=== PATIENT | male | born 1960 | race Caucasian/White ===

== ENCOUNTER 2018-05-12 20:30 | Outpatient (CLI) | payer OTHER | END 2018-05-12 20:31 | disposition home or self-care (01) | LOC: SLEEPLAB 20:30 | PROVIDERS: ATTEND Specialist | DX: G47.33 Obstructive sleep apnea (adult) (pediatric) (principal); R53.83 Other fatigue; R40.0 Somnolence; R06.83 Snoring; G47.00 Insomnia, unspecified | CPT/HCPCS: 95811 ==

== ENCOUNTER 2018-06-15 11:57 | Outpatient (CLI) | payer OTHER ==
--- NOTE | 2018-06-15 12:57 | RAD ---
CERVICAL SPINE RADIOGRAPH SERIES 3 VIEWS: INDICATION: Pain. History of cervical spine surgery. FINDINGS: Three lateral views are submitted for interpretation. Comparing extension and flexion views with neutral lateral view, there is no significant, abnormal tr anslational motion or subluxation present. There is reversal of normal cervical curvature. ACDF is present at C3-4 with an intervening disk prosthesis. Moderate multilevel degenerative change with mu ltilevel end plate irregularity, marginal osteophyte formation, disk space narrowing, and facet osteo arthritis present. Evaluation is otherwise limited on the basis of lateral views. IMPRESSION: No significant listhesis or translational motion demonstrated. POS: [facility]
== END 2018-06-15 11:58 | disposition home or self-care (01) ==
LOC: RAD 11:57
PROVIDERS: ATTEND Nurse Practitioner Family
DX: M54.12 Radiculopathy, cervical region (principal)
CPT/HCPCS: 72040

== ENCOUNTER 2018-07-27 11:03 | Emergency (ER) | payer OTHER | END 2018-07-27 11:20 | disposition home or self-care (01) | LOC: SCSER 11:03 | DX: L25.9 Unspecified contact dermatitis, unspecified cause (principal); I10 Essential (primary) hypertension; F17.210 Nicotine dependence, cigarettes, uncomplicated | CPT/HCPCS: 99282 ==

== ENCOUNTER 2018-07-29 12:38 | Outpatient (CLI) | payer OTHER ==
[2018-07-29 14:35] LABS: #Basophils 0.1 thou/uL (0.0-0.2); #Eosinphils 0.5 thou/uL (0.0-0.7); #Lymphocytes 2.1 thou/uL (1.20-3.40); #Monocytes 0.8 thou/uL (0.11-0.59); #Neutrophils 4.8 thou/uL (1.40-6.50); %Basophils 0.9 % (0.0-1.0); %Eosinophils 6.4 % (0.0-10.0); %Monocytes 9.7 % (0.0-10.0); %Neutrophils 58.1 % (42.0-75.0); Mean Corpuscular Hemoglobin 31.1 pg (27.0-31.0); Mean Corpuscular Volume 91.4 fL (78.0-98.0); Mean Platelet Volume 7.5 fL (7.4-10.4); Platelet Count 194 thou/uL (130-400); RBC Distribution Width 11.6 % (11.5-14.5); Red Blood Cell (RBC) Count 4.19 mill/uL (4.70-6.10); White Blood Cell (WBC) Count 8.3 thou/uL (4.8-10.8)
[2018-07-29 15:05] LABS: ALT (SGPT) 34 U/L (8-55); AST (SGOT) 34 U/L (5-34); Albumin 4.3 g/dL (3.5-5.0); Alkaline Phosphatase 71 U/L (40-150); Anion Gap 12 mmol/L (10-20); BUN (Urea Nitrogen) 27 mg/dL (8.4-25.7); Bilirubin, Total 0.6 mg/dL (0.2-1.2); Calc. Creatinine Clearance 0 mL/min (70-130); Carbon Dioxide 27 mmol/L (22-29); Chloride 102 mmol/L (98-107); Estimated GFR-MDRD 63; Globulin 2.9 g/dL (2.4-3.5); Glucose 89 mg/dL (70-105); Potassium 4.3 mmol/L (3.5-5.1); Protein, Total 7.2 g/dL (6.0-8.3); Sodium 137 mmol/L (136-145)
== END 2018-07-29 12:39 | disposition home or self-care (01) ==
LOC: LABBT 12:38
PROVIDERS: ATTEND Internal Medicine
DX: Z01.812 Encounter for preprocedural laboratory examination (principal); R07.9 Chest pain, unspecified
CPT/HCPCS: 80053; 85025

== ENCOUNTER 2018-08-01 06:06 | Inpatient (IN) | payer OTHER ==
[2018-08-01] MEDS ORDERED: Diazepam 5 MG TAB ONE (06:34)
[2018-08-01] MEDS ORDERED: Acetaminophen/Codeine 30-300mg Tablet PO PRN ×4 (07:33→09:41)
[2018-08-01] MEDS ORDERED: Sodium Chloride 0.9% 200 ML IV PRN (07:33)
[2018-08-01] MEDS ORDERED: Nitroglycerin 0.4 MG TAB (25 Tab Bottle) SL PRN ×2 (07:33→09:41)
[2018-08-01] MEDS ORDERED: Sodium Chloride 0.9% 1,000 ML IV SCH (07:45)
[2018-08-01] MEDS ORDERED: Iopamidol 370 76% 100 ML VIAL ONE (10:54)
[2018-08-01] MEDS ORDERED: [UNRECOGNIZED DRUG - REMARK] FS SCH (12:38)
--- NOTE | 2018-08-01 16:21 | CON ---
DATE OF CONSULTATION: HISTORY OF PRESENT ILLNESS: This is a 58-year-old gentleman, who is a poor historian, but admits to probably two episodes of central chest discomfort over the past month. It is associated with dyspnea. He was seen by Dr. Garcia, where the patient states he underwent carotid ultrasonography and peripheral vascular evaluation and EKG. He underwent cardiac catheterization today, where he was found to have left main and ostial right coronary artery stenosis and has been referred for coronary bypass grafting. PAST MEDICAL HISTORY: Significant for hypertension, hypothyroidism, peripheral vascular disease, chronic tobacco abuse. He continues to smoke a couple of cigarettes a day and earlier this year was smoking about half a pack of cigarettes a day. PAST SURGICAL HISTORY: Includes left knee replacement in 2003, right carotid endarterectomy in 2013, bilateral femoral endarterectomy and kissing common iliac stents in 2013, and left knee replacement in 2014. SOCIAL HISTORY: Smoker as mentioned. Drinks socially. Lives with his aunt. No specific exercise program. ALLERGIES: NONE KNOWN. MEDICATIONS: Medications reported most recently are: 1. Hydrochlorothiazide 25 mg a day. 2. Levothyroxine 125 a day. 3. Simvastatin 20 a day. 4. Aspirin 81 daily. 5. Plavix 75 a day. 6. Flomax 0.4 a day. It is not clear to me that the patient has been taking these regularly. PHYSICAL EXAMINATION: VITAL SIGNS: On examination, he has a recorded height of 5 feet 10 inches, weight of 209 pounds. NECK: He has a healed right carotid endarterectomy scar. CARDIAC: Regular rate and rhythm. No murmurs. ABDOMEN: Soft, nontender. LUNGS: Bilateral rhonchi, but no wheezes. EXTREMITIES: He has incisions in both groins with a dressing on the left groin. He has a weak but present right femoral pulse and palpable left dorsalis pedis pulse. He has no pedal pulses on the right foot. Both feet are warm to palpation. PLAN: Plan at this time is for coronary bypass grafting to the LAD, obtuse marginal, possible ramus, possible distal right coronary artery. Informed consent has been obtained. Additional problems include claudication in both calf with walking and a diminished right femoral pulse. Left femoral pulse could not be assessed at this time due to dressing and recent catheterization today. We will need this sorted out post coronary bypass grafting in case he has an iliac stent that has impending closure issues. He does have known left carotid disease, although the most recent carotid ultrasonography done by Dr. Garcia showed peak systolic velocities of 154 cm/second. Remote CTA in 2013 was suggestive of 70% left carotid stenosis, although this was not specifically treated because it did not coincide with carotid ultrasound findings that did not suggest that critical of the lesion. Informed consent has been obtained for coronary bypass grafting. Job ID: [id number]
--- NOTE | 2018-08-02 06:16 | PDOC.CTH ---
Cardiology Progress Note - Objective Vital Signs Temp Pulse Resp BP Pulse Ox 08/02/18 03:27 98.1 F 57 L 16 175/81 H 91 L 08/02/18 00:18 97.7 F 60 16 160/77 H 93 L 08/01/18 19:14 98.6 F 63 16 186/88 H 96 Weight 209 lb 6.4 oz 07/31/18 08/01/18 08/02/18 06:59 06:59 06:59 Intake Total 1678 Output Total 1460 Balance 218 - Assessment/Plan Severe CAD Severe PVD Carotid disease PRevious tobacco abuse Pt scheduled for CABG today Add statin and BB when extubated and hemodynamically stable
[2018-08-02] MEDS ORDERED: Bupivacaine HCl 0.5%/Epinephrine 1:200,000/PF 30 ml Vial ONE (06:29)
[2018-08-02] MEDS ORDERED: Dexamethasone 4 mg/ml Vial ONE (06:29)
[2018-08-02] MEDS ORDERED: Vecuronium 10 MG VIAL ONE ×2 (06:45→13:22)
[2018-08-02] MEDS ORDERED: Dexmedetomidine 200 MCG/2 ML VIAL ONE (06:45)
[2018-08-02] MEDS ORDERED: Norepinephrine 8 MG/0.9% NS 250 ML ONE (06:45)
[2018-08-02] MEDS ORDERED: Midazolam HCl 5 mg/5 ml Vial ONE (06:45)
[2018-08-02] MEDS ORDERED: Fentanyl 250 MCG/5 ML VIAL ONE (06:45)
[2018-08-02] MEDS ORDERED: Heparin 10,000 UNITS/1 ML VIAL 30,000 UNITS in Sodium Chloride 0.9% 1,000 ML FS SCH (07:00)
[2018-08-02] MEDS ORDERED: Midazolam HCl 2 mg/2 ml Vial ONE (07:04)
[2018-08-02] MEDS ORDERED: Albumin 5% 500 ML ONE (08:52)
[2018-08-02] MEDS ORDERED: Insulin Regular 300 UNITS/3 ML VIAL ONE (10:15)
[2018-08-02] MEDS ORDERED: Protamine Sulfate 50 MG/5 ML VIAL ONE (10:18)
[2018-08-02] MEDS ORDERED: Bisacodyl 5 MG TAB PO PRN (11:38)
[2018-08-02] MEDS ORDERED: Acetaminophen 325 MG TAB PO PRN (11:38)
[2018-08-02] MEDS ORDERED: DOPamine 400 MG/D5W 250 ML 250 ML IVPB PRN (11:38)
[2018-08-02] MEDS ORDERED: Ondansetron PF 4 MG/2 ML Vial IVP PRN (11:38)
[2018-08-02] MEDS ORDERED: Bisacodyl 10 MG SUPP PR PRN (11:38)
[2018-08-02] MEDS ORDERED: Mag-Al 1200 mg/1200 mg/30 ML UDCUP PO PRN (11:38)
[2018-08-02] MEDS ORDERED: Guaifenesin DM 100-10/5 ML UDCUP PO PRN (11:38)
[2018-08-02] MEDS ORDERED: Nitroglycerin 50 MG/250 ML BOT 250 ML IVPB PRN (11:38)
[2018-08-02] MEDS ORDERED: Hetastarch 6% 500 ML 500 ML IVPB PRN (11:38)
[2018-08-02] MEDS ORDERED: Promethazine HCl 25 MG/ML VIAL IM PRN (11:38)
[2018-08-02] MEDS ORDERED: Norepinephrine 8 MG/0.9% NS 250 ML IVPB PRN (11:38)
[2018-08-02] MEDS ORDERED: Fentanyl 100 MCG/2 ML VIAL SLOW IVP PRN ×2 (11:38)
[2018-08-02] MEDS ORDERED: HYDROcodone/Acetaminophen 5/325 mg Tablet PO PRN (11:38)
[2018-08-02] MEDS ORDERED: hydrALAZINE 20 MG/ML VIAL SLOW IVP PRN (11:38)
[2018-08-02] MEDS ORDERED: Morphine 2 MG/ML SYRINGE SLOW IVP PRN (11:38)
[2018-08-02] MEDS ORDERED: Post-Op Insulin Drip Protocol IVPB ONE (11:38)
[2018-08-02] MEDS ORDERED: Insulin Regular 300 UNITS/3 ML VIAL SC PRN (11:43)
[2018-08-02] MEDS ORDERED: Dextrose 5% in Water 1,000 ML IV PRN (11:43)
[2018-08-02] MEDS ORDERED: HUMULIN R 100 UNITS in Sodium Chloride 0.9% 100 ML IVPB SCH (11:43)
[2018-08-02] MEDS ORDERED: Dextrose 50% Abboject 50 ML SYRINGE SLOW IVP PRN (11:43)
[2018-08-02] MEDS ORDERED: Magnesium 2 GM/50 ML 2 GM in Premix Bag 1 BAG IVPB SCH (12:00)
[2018-08-02 12:06] LABS: Actual Bicarbonate (HCO3a) 23.6 mEq/L (22-28); Base Excess (BEa) -1.8 mEq/L (-2.0 to +3.0); Calcium, Ionized 1.12 mmol/L (1.12-1.30); Carboxyhemoglobin (COHb) 0.4 gm% (0.0-3.0); Hemoglobin (Hb) 9.9 g/dL (14.0-18.0); Potassium - ABG Lab 3.95 mmol/L (3.70-5.30); pH, Arterial 7.36 (7.35-7.45)
[2018-08-02 12:08] LABS: Puncture Site ALINE
[2018-08-02 12:13] LABS: #Eosinphils 0.3 thou/uL (0.0-0.7); #Lymphocytes 1.1 thou/uL (1.20-3.40); #Monocytes 0.9 thou/uL (0.11-0.59); #Neutrophils 9.3 thou/uL (1.40-6.50); %Basophils 0.2 % (0.0-1.0); %Eosinophils 2.4 % (0.0-10.0); %Lymphocytes 9.1 % (21.0-51.0); %Monocytes 7.4 % (0.0-10.0); %Neutrophils 80.9 % (42.0-75.0); Hemoglobin 9.3 g/dL (14.0-18.0); Mean Corpuscular HGB CONC 33.4 g/dL (32.0-36.0); Mean Corpuscular Hemoglobin 31.1 pg (27.0-31.0); Mean Corpuscular Volume 93.1 fL (78.0-98.0); Mean Platelet Volume 6.8 fL (7.4-10.4); Platelet Count 158 thou/uL (130-400); RBC Distribution Width 11.5 % (11.5-14.5); Red Blood Cell (RBC) Count 2.99 mill/uL (4.70-6.10); White Blood Cell (WBC) Count 11.5 thou/uL (4.8-10.8)
[2018-08-02 12:19] LABS: INR-International Normal Ratio 1.4; PTT 28.1 SEC (22.9-36.1); Prothrombin Time 16.8 SEC (12.0-14.7)
[2018-08-02 12:38] LABS: Anion Gap 6 mmol/L (10-20); BUN (Urea Nitrogen) 20 mg/dL (8.4-25.7); Calc. Creatinine Clearance 134 mL/min (70-130); Calcium 7.9 mg/dL (7.8-10.44); Carbon Dioxide 26 mmol/L (22-29); Chloride 111 mmol/L (98-107); Estimated GFR-MDRD Greater than 90; Glucose 75 mg/dL (70-105); Sodium 139 mmol/L (136-145)
[2018-08-02] MEDS ORDERED: Potassium Chloride 60 MEQ/30 ML VIAL ONE (13:22)
[2018-08-02] MEDS ORDERED: Lidocaine 2% PF 100 mg/5 ml Syringe ONE (13:22)
[2018-08-02] MEDS ORDERED: Papaverine 60 MG/2 ML VIAL ONE (13:22)
[2018-08-02] MEDS ORDERED: Sodium Bicarb 50 MEQ/50 ML VIAL ONE (13:22)
[2018-08-02] MEDS ORDERED: Heparin 30,000 units/30 ml VIAL ONE (13:22)
[2018-08-02] MEDS ORDERED: Calcium Chloride 1 GM/10 ML Abboject SYRINGE ONE (13:22)
[2018-08-02] MEDS ORDERED: Thrombin 5000 UNITS/5 ML VIAL ONE (13:22)
[2018-08-02] MEDS ORDERED: Magnesium 5 GM/10 ML VIAL ONE (13:22)
[2018-08-02] MEDS ORDERED: Cardioplegic Soln 1,000 ML BAG ONE (13:22)
[2018-08-02] MEDS ORDERED: Aminocaproic Acid 5 GM/20 ML VIAL ONE (13:22)
[2018-08-02] MEDS ORDERED: Nitroglycerin 50 MG/250 ML BOT ONE (13:22)
[2018-08-02] MEDS ORDERED: Heparin 5,000 UNITS/ML VIAL ONE (13:22)
[2018-08-02] MEDS ORDERED: Mannitol 12.5 GM/50 ML ONE (13:22)
[2018-08-02] MEDS ORDERED: Protamine Sulfate 250 MG/25 ML VIAL ONE (13:22)
[2018-08-02] MEDS ORDERED: Glycopyrrolate 0.2 MG/ML 5 ML SYRINGE ONE (13:22)
[2018-08-02] MEDS ORDERED: PROPOFOL 200 MG/20 ML VIAL ONE (13:22)
--- NOTE | 2018-08-02 13:40 | RAD ---
PORTABLE CHEST ONE VIEW: Date: 08-02-18 Time: 11:49 a.m. History: Post op open heart surgery. FINDINGS: Comparison made with 08-04-13. Interval change of median sternotomy is seen. The tip of a endotracheal tube is at the C7 level. Ther e is a right subclavian central line with tip in the projection of the cavoatrial junction. The heart size is normal. The lungs are well expanded without lobar consolidation, pneumothoraces, madie pulmo nary edema or large effusions. Report was called over the telephone to the patient's nurse, Cinthia Cruz RN at 12:17 p.m. POS: [facility]
[2018-08-02] MEDS: CEFAZOLIN 2 GM in Premix Bag 1 BAG IVPB SCH (13:49)
[2018-08-02] MEDS: Ketorolac Tromethamine 30 MG/ML VIAL IVP SCH ×2 (13:49→18:03)
[2018-08-02] MEDS: Sodium Chloride 0.9% 1,000 ML IV SCH (13:49)
[2018-08-02] MEDS: Potassium Chloride 20 MEQ/100 ML PREMIX BAG IVPB PRN (13:55)
[2018-08-02 18:06] LABS: Actual Bicarbonate (HCO3a) 19.7 mEq/L (22-28); Base Excess (BEa) -3.5 mEq/L (-2.0 to +3.0); CO2 Tension 28.8 mmHg (35.0-45.0); Calcium, Ionized 1.09 mmol/L (1.12-1.30); Carboxyhemoglobin (COHb) 0.3 gm% (0.0-3.0); Hemoglobin (Hb) 9.4 g/dL (14.0-18.0); Potassium - ABG Lab 4.03 mmol/L (3.70-5.30); pH, Arterial 7.45 (7.35-7.45)
[2018-08-02 18:14] LABS: Hemoglobin 8.9 g/dL (14.0-18.0)
[2018-08-02 18:32] LABS: Potassium 4.1 mmol/L (3.5-5.1)
--- NOTE | 2018-08-02 19:46 | RAD ---
FEXAM: Portable chest PROVIDED CLINICAL HISTORY: Increased chest tube output COMPARISON: Exam of earlier same date FINDINGS: Cardiac and mediastinal silhouette is within normal limits. No focal consolidation, pleural fluid or pneumothorax evident, with limitations in evaluating for pleural fluid or pneumothorax due to the sup ine nature of the study. Interval extubation. Right subclavian central line is redemonstrated. Medias tinal drains and median sternotomy changes are again seen. IMPRESSION: No evidence for an acute cardiopulmonary process.
[2018-08-02] MEDS: Famotidine/PF 20 mg/2ml Vial SLOW IVP SCH (20:12)
[2018-08-02] MEDS: HYDROcodone/Acetaminophen 5/325 mg Tablet PO PRN (20:12)
[2018-08-02] MEDS: Atorvastatin Calcium 20 MG TAB PO SCH (20:12)
--- NOTE | 2018-08-02 21:26 | EKG ---
Test Reason : POST CSBG Blood Pressure : / mmHG Vent. Rate : 073 BPM Atrial Rate : 073 BPM P-R Int : 182 ms QRS Dur : 094 ms QT Int : 430 ms P-R-T Axes : 060 032 068 degrees QTc Int : 473 ms Normal sinus rhythm Normal ECG When compared with ECG of 23-JAN-2014 07:07, No significant change was found Confirmed by MIGUEL JUAREZ, SRachel ([id number]) on 08/02/2018 9:25:28 PM Referred By: TRUNG Confirmed By:DR. Vahe RIVERA MD
[2018-08-03] MEDS: CEFAZOLIN 2 GM in Premix Bag 1 BAG IVPB SCH ×2 (00:02→05:06)
[2018-08-03] MEDS: Ketorolac Tromethamine 30 MG/ML VIAL IVP SCH ×4 (00:02→17:13)
[2018-08-03] MEDS: Sodium Chloride 0.9% 1,000 ML IV SCH ×3 (00:03→15:20)
[2018-08-03 01:35] LABS: Hemoglobin 8.5 g/dL (14.0-18.0)
[2018-08-03] MEDS: HYDROcodone/Acetaminophen 5/325 mg Tablet PO PRN ×4 (02:51→21:29)
[2018-08-03 03:50] LABS: #Lymphocytes 0.6 thou/uL (1.20-3.40); #Monocytes 0.8 thou/uL (0.11-0.59); #Neutrophils 6.7 thou/uL (1.40-6.50); %Basophils 0.4 % (0.0-1.0); %Eosinophils 0.2 % (0.0-10.0); %Lymphocytes 7.1 % (21.0-51.0); %Monocytes 10.2 % (0.0-10.0); %Neutrophils 82.1 % (42.0-75.0); Mean Corpuscular HGB CONC 34.2 g/dL (32.0-36.0); Mean Corpuscular Hemoglobin 31.2 pg (27.0-31.0); Mean Corpuscular Volume 91.1 fL (78.0-98.0); Mean Platelet Volume 7.5 fL (7.4-10.4); Platelet Count 193 thou/uL (130-400); RBC Distribution Width 11.9 % (11.5-14.5); Red Blood Cell (RBC) Count 2.56 mill/uL (4.70-6.10); White Blood Cell (WBC) Count 8.1 thou/uL (4.8-10.8)
[2018-08-03 04:00] LABS: Anion Gap 10 mmol/L (10-20); BUN (Urea Nitrogen) 22 mg/dL (8.4-25.7); Calc. Creatinine Clearance 115 mL/min (70-130); Calcium 7.9 mg/dL (7.8-10.44); Carbon Dioxide 24 mmol/L (22-29); Chloride 109 mmol/L (98-107); Estimated GFR-MDRD 83; Glucose 128 mg/dL (70-105); Potassium 3.9 mmol/L (3.5-5.1); Sodium 139 mmol/L (136-145)
[2018-08-03] MEDS: Potassium Chloride 20 MEQ/100 ML PREMIX BAG IVPB PRN (04:51)
--- NOTE | 2018-08-03 07:40 | OP ---
DATE OF PROCEDURE: 08/02/2018 PREOPERATIVE DIAGNOSIS: Coronary artery disease. PROCEDURE PERFORMED: Coronary artery bypass graft x4, good quality left internal mammary artery to 2- to 2.5-mm LAD, saphenous vein good quality to a 1.5-mm right coronary artery at the takeoff of a high PDA branch, good quality saphenous vein to a 1-mm OM1 and 1.25-mm OM2. SALES REPRESENTATIVE: Juan David Pimentel MD TRANSFUSION: 2 units of single donor platelet packs. DESCRIPTION OF PROCEDURE: After adequate anesthesia had been obtained, Dr. Pimentel performed an endovascular vein harvest of the left greater saphenous vein while I performed a median sternotomy. The patient had oozing from all surfaces on the median sternotomy, suggesting that he was taking his Plavix at home. Following opening of the sternum, both lungs met in the midline, although the pleural cavities were not entered. Left internal mammary artery was harvested and passed medial to the left lung after opening the pericardium. Aortic and right atrial cannulation sutures were placed, and the patient was then put on cardiopulmonary bypass with good ACT levels. Heart was not enlarged. Aorta was cross clamped, and after a liter of cold blood cardioplegia, the four distal anastomosis were completed. Cross-clamp was removed and the partial occluding clamp placed and 2 vein anastomoses were performed on the aortic root including the right coronary and the distal OM. The ramus graft was anastomosed to the hernandez of the OM graft. Following this, a single suture was required in the ramus distally. The patient was then weaned from cardiopulmonary bypass. Cannula was removed and protamine given systemically. The patient had oozing from needle holes on the aorta and initial platelet pack was given and a second one was ordered. Surgicel was placed on the aorta. Sternum was then reapproximated with #7 interrupted wire using vancomycin paste on the sternal edges, platelet rich blood, and platelet poor plasma. Subcutaneous tissue and skin were closed in layers. The patient is to be taken to the ICU in guarded condition. Circumflex vessels are not redo candidates. Job ID: [id number]
--- NOTE | 2018-08-03 07:42 | RAD ---
FPortable chest radiograph: 08/03/2018 COMPARISON: 08/02/2018 HISTORY:Evaluate chest following open heart surgery FINDINGS: Stable right vascular catheter and midline sternotomy wires. No pneumothorax, lobar consoli dation, alveolar edema, or large volume pleural effusion. Heart and mediastinal contours are stable. IMPRESSION: No significant interval change.
[2018-08-03] MEDS: Famotidine/PF 20 mg/2ml Vial SLOW IVP SCH ×2 (08:08→21:29)
--- NOTE | 2018-08-03 08:56 | PDOC.CTH ---
Cardiology Progress Note - Subjective Doing well clinically. No complaints. Still on low dose pressor. - Objective Vital Signs Temp Pulse Pulse Resp Pulse Ox 08/03/18 07:23 99 08/03/18 07:21 67 20 99 08/03/18 05:31 100.2 F H 84 14 100 08/03/18 05:12 99.4 F 81 18 100 08/03/18 05:00 99.4 F 08/03/18 00:16 99.3 F 88 88 13 100 08/03/18 00:00 99.3 F 08/02/18 20:55 99.2 F 82 16 100 Weight 214 lb 1.102 oz 08/02/18 08/03/18 08/04/18 06:59 06:59 06:59 Intake Total 1678 3215.8 Output Total 1460 2774 Balance 218 441.8 - Physical Examination General/Neuro: alert & oriented x3, NAD Neck: no JVD present Lungs: CTA, unlabored respirations Heart: PMI normal, RRR Abdomen: NT/ND, soft Extremities: + femoral B - Telemetry Telemetry Rhythm: SR - Labs Result Diagrams: 08/03/18 03:34 08/03/18 03:34 - Assessment/Plan Severe CAD s/p CABG Severe PVD Continue to support BP with pressors as needed. As he is weaned off, add BB. IS CT in place. Statin treatment
[2018-08-03] MEDS ORDERED: Aspirin Chewable 81 MG TAB PO SCH (09:00)
[2018-08-03 09:02] LABS: Actual Bicarbonate (HCO3a) 24.5 mEq/L (22-28); Analyzer IN Cardio OR; Base Excess (BEa) -0.5 mEq/L (-2.0 to +3.0); CO2 Tension 41.4 mmHg (35.0-45.0); Calcium, Ionized 1.17 mmol/L (1.12-1.30); Carboxyhemoglobin (COHb) 0.9 gm% (0.0-3.0); Hemoglobin (Hb) 12.8 g/dL (14.0-18.0); O2 Tension (PaO2) 383.5 mmHg (80.0-100.0); Potassium - ABG Lab 3.81 mmol/L (3.70-5.30); pH, Arterial 7.39 (7.35-7.45)
[2018-08-03 09:03] LABS: Actual Bicarbonate (HCO3v) 25 mEq/L (22-28); Analyzer IN Cardio OR; Base Excess -0.9 mEq/L (-2.0 to +3.0); Calcium, Ionized 1.05 mmol/L (1.16-1.32); Chloride (ABG LAB) 104 mmol/L (98-106); Hemoglobin (Hb) 9.3 g/dL (13.1-17.2); Potassium - ABG Lab 5.15 mmol/L (3.70-5.30); pH (venous) 7.32 (7.32-7.43)
[2018-08-03 09:03] LABS: Actual Bicarbonate (HCO3a) 23.4 mEq/L (22-28); Analyzer IN Cardio OR; Base Excess (BEa) -2.6 mEq/L (-2.0 to +3.0); CO2 Tension 45.2 mmHg (35.0-45.0); Calcium, Ionized 1.13 mmol/L (1.12-1.30); Hemoglobin (Hb) 11.6 g/dL (14.0-18.0); O2 Tension (PaO2) 356.8 mmHg (80.0-100.0); Potassium - ABG Lab 3.96 mmol/L (3.70-5.30); pH, Arterial 7.33 (7.35-7.45)
[2018-08-03 09:03] LABS: Actual Bicarbonate (HCO3a) 24.9 mEq/L (22-28); Analyzer IN Cardio OR; Base Excess (BEa) -0.3 mEq/L (-2.0 to +3.0); CO2 Tension 43.2 mmHg (35.0-45.0); Calcium, Ionized 1.03 mmol/L (1.12-1.30); Carboxyhemoglobin (COHb) 0.3 gm% (0.0-3.0); Hemoglobin (Hb) 8.9 g/dL (14.0-18.0); Potassium - ABG Lab 4.93 mmol/L (3.70-5.30); pH, Arterial 7.38 (7.35-7.45)
[2018-08-03 09:04] LABS: Actual Bicarbonate (HCO3a) 22.8 mEq/L (22-28); Analyzer IN Cardio OR; Base Excess (BEa) -2.8 mEq/L (-2.0 to +3.0); CO2 Tension 43.2 mmHg (35.0-45.0); Calcium, Ionized 1.01 mmol/L (1.12-1.30); Carboxyhemoglobin (COHb) 0.3 gm% (0.0-3.0); Hemoglobin (Hb) 8.7 g/dL (14.0-18.0); O2 Tension (PaO2) 395.1 mmHg (80.0-100.0); Potassium - ABG Lab 4.63 mmol/L (3.70-5.30); pH, Arterial 7.34 (7.35-7.45)
[2018-08-03 09:04] LABS: Actual Bicarbonate (HCO3a) 23.1 mEq/L (22-28); Analyzer IN Cardio OR; Base Excess (BEa) -2.5 mEq/L (-2.0 to +3.0); CO2 Tension 43.4 mmHg (35.0-45.0); Calcium, Ionized 1.06 mmol/L (1.12-1.30); Carboxyhemoglobin (COHb) 0.2 gm% (0.0-3.0); Hemoglobin (Hb) 8.7 g/dL (14.0-18.0); O2 Tension (PaO2) 340.5 mmHg (80.0-100.0); Potassium - ABG Lab 4.21 mmol/L (3.70-5.30); pH, Arterial 7.34 (7.35-7.45)
[2018-08-03 09:04] LABS: Actual Bicarbonate (HCO3a) 24.4 mEq/L (22-28); Analyzer IN Cardio OR; Base Excess (BEa) -1.8 mEq/L (-2.0 to +3.0); CO2 Tension 48.2 mmHg (35.0-45.0); Calcium, Ionized 1.12 mmol/L (1.12-1.30); Carboxyhemoglobin (COHb) 0.3 gm% (0.0-3.0); Hemoglobin (Hb) 9.9 g/dL (14.0-18.0); pH, Arterial 7.32 (7.35-7.45)
[2018-08-03 09:08] LABS: O2 Tension (PaO2) 532.8 mmHg (80.0-100.0); Puncture Site ALINE
[2018-08-03 09:11] LABS: Puncture Site ALINE
[2018-08-03 09:12] LABS: Puncture Site ALINE
[2018-08-03 09:12] LABS: Puncture Site ALINE
[2018-08-03 09:13] LABS: Puncture Site ALINE
[2018-08-03 09:13] LABS: Puncture Site ALINE
[2018-08-03 14:26] LABS: Hemoglobin 8.2 g/dL (14.0-18.0); Platelet Count 174 thou/uL (130-400)
--- NOTE | 2018-08-03 16:05 | RAD ---
FAP view chest. Mediastinal widening. AP view chest obtained on 08/03/2018. Comparison made to previous exam from earlier in the day on 019. AP view chest demonstrates sternotomy wires seen. No definite evidence of mediastinal widening seen. Mild pulmonary vascular congestion seen. The lungs are well aerated. Right subclavian central line is in place. IMPRESSION: no significant evidence of increased mediastinal widening.
[2018-08-03 20:21] LABS: Hemoglobin 8.2 g/dL (14.0-18.0); Platelet Count 136 thou/uL (130-400)
[2018-08-03] MEDS: Atorvastatin Calcium 20 MG TAB PO SCH (21:29)
--- NOTE | 2018-08-04 01:34 | CON ---
DATE OF CONSULTATION: 08/03/2018 HISTORY OF PRESENT ILLNESS: Mr. Pearson is a very pleasant 58-year-old male who has undergone 4-vessel bypass. He has been a smoker up until this admission. He says he has been trying to quit for about 2 years, but had not been very successful. PAST MEDICAL HISTORY: Remarkable for 1. Hypertension. 2. Hypothyroidism. 3. Peripheral vascular disease. 4. History of knee replacement on the left. 5. History of carotid endarterectomy in 2013 on the right. 6. History of bilateral femoral endarterectomy and common iliac stents in 2013. 7. History of left knee replacement in 2014. SOCIAL HISTORY: He drinks occasionally, smokes every day up until this admission. He is not a drug user. FAMILY HISTORY: Not obtained. ALLERGIES: HE HAS NO DRUG ALLERGIES. MEDICATIONS: Prior to admission, he is on 1. Synthroid. 2. Hydrochlorothiazide. 3. Simvastatin. 4. Aspirin. 5. Plavix. 6. Flomax. REVIEW OF SYSTEMS: Ten point review of systems completed, otherwise negative. He specifically denies dyspnea on exertion prior to this admission. He says he has never been told he had COPD , never been a wheezer. He never been on metered-dose inhalers. PHYSICAL EXAMINATION: GENERAL: He is a pleasant gentleman, in no distress, cooperative, wants to get up and move, he says. VITAL SIGNS: Heart rate is 115, respiratory rate 23, oximetry is 100% on room air, blood pressure 104/75. HEENT: Pupils are equal. Sclerae are anicteric. NECK: Supple. No lymphadenopathy. LUNGS: Clear. HEART: Regular rhythm. S1 and S2 are normal. ABDOMEN: Soft and nontender. EXTREMITIES: Without clubbing, cyanosis, or edema. IMAGING: Chest radiograph done today shows no infiltrates. IMPRESSION: 1. Status post coronary artery bypass grafting. 2. Tobacco use. No clinical evidence of chronic obstructive pulmonary disease, appears to be stable at this time. We will follow with the other physicians caring for him. TIME SPENT: This was a 70-minute consult, with greater than 50% of the time spent on the unit coordinating care. Job ID: [id number] MTDD
[2018-08-04] MEDS: Ketorolac Tromethamine 30 MG/ML VIAL IVP SCH ×2 (02:06→06:36)
[2018-08-04] MEDS: HYDROcodone/Acetaminophen 5/325 mg Tablet PO PRN ×5 (02:07→22:00)
[2018-08-04 03:35] LABS: #Eosinphils 0.2 thou/uL (0.0-0.7); #Lymphocytes 1.1 thou/uL (1.20-3.40); #Monocytes 0.8 thou/uL (0.11-0.59); #Neutrophils 6.3 thou/uL (1.40-6.50); %Basophils 0.5 % (0.0-1.0); %Eosinophils 1.9 % (0.0-10.0); %Lymphocytes 13.3 % (21.0-51.0); %Monocytes 9.8 % (0.0-10.0); %Neutrophils 74.5 % (42.0-75.0); Hemoglobin 7.7 g/dL (14.0-18.0); Mean Corpuscular HGB CONC 33.4 g/dL (32.0-36.0); Mean Corpuscular Hemoglobin 31.5 pg (27.0-31.0); Mean Corpuscular Volume 94.3 fL (78.0-98.0); Mean Platelet Volume 7.2 fL (7.4-10.4); Platelet Count 148 thou/uL (130-400); RBC Distribution Width 12.5 % (11.5-14.5); Red Blood Cell (RBC) Count 2.43 mill/uL (4.70-6.10); White Blood Cell (WBC) Count 8.4 thou/uL (4.8-10.8)
[2018-08-04 03:54] LABS: Anion Gap 10 mmol/L (10-20); BUN (Urea Nitrogen) 22 mg/dL (8.4-25.7); Calc. Creatinine Clearance 121 mL/min (70-130); Calcium 7.8 mg/dL (7.8-10.44); Carbon Dioxide 25 mmol/L (22-29); Chloride 109 mmol/L (98-107); Estimated GFR-MDRD 86; Glucose 119 mg/dL (70-105); Potassium 3.9 mmol/L (3.5-5.1); Sodium 140 mmol/L (136-145)
[2018-08-04] MEDS: Potassium Chloride 20 MEQ/100 ML PREMIX BAG IVPB PRN (04:32)
--- NOTE | 2018-08-04 07:00 | PDOC.CTH ---
Cardiology Progress Note - Subjective Doing well. No complaints - Objective Vital Signs Temp Pulse Pulse Resp BP Pulse Ox 08/04/18 04:23 98.8 F 81 21 H 103/49 L 100 08/04/18 04:06 99.0 F 82 17 101/56 L 100 08/04/18 00:22 85 20 93 L 08/03/18 19:00 97 Weight 215 lb 6.266 oz 08/02/18 08/03/18 08/04/18 06:59 06:59 06:59 Intake Total 1678 3215.8 2828.6 Output Total 1460 2774 1152 Balance 218 441.8 1676.6 - Physical Examination General/Neuro: alert & oriented x3, NAD Neck: carotid US brisk, no JVD present Lungs: CTA, unlabored respirations Heart: RRR Abdomen: NT/ND, soft Extremities: + femoral B - Telemetry Telemetry Rhythm: SR - Labs Result Diagrams: 08/04/18 03:25 08/04/18 03:25 - Assessment/Plan Severe CAD s/p CABG Severe PVD Pt off pressors Add low dose BB On ASA, statin Transfuse
[2018-08-04] MEDS ORDERED: Milk Of Magnesia 30 ML UDCUP PO PRN (07:24)
[2018-08-04] MEDS ORDERED: Bisacodyl 5 MG TAB PO PRN (07:24)
[2018-08-04] MEDS ORDERED: Nitroglycerin 0.4 MG TAB (25 Tab Bottle) SL PRN (07:24)
[2018-08-04] MEDS ORDERED: Fentanyl 100 MCG/2 ML VIAL SLOW IVP PRN (07:24)
[2018-08-04] MEDS ORDERED: Mineral Oil ENEMA PR PRN (07:24)
[2018-08-04] MEDS ORDERED: Guaifenesin DM 100-10/5 ML UDCUP PO PRN (07:24)
[2018-08-04] MEDS ORDERED: Acetaminophen 325 MG TAB PO PRN (07:24)
[2018-08-04] MEDS ORDERED: Mag-Al 1200 mg/1200 mg/30 ML UDCUP PO PRN (07:24)
[2018-08-04] MEDS ORDERED: Bisacodyl 10 MG SUPP PR PRN (07:24)
[2018-08-04] MEDS ORDERED: Ondansetron PF 4 MG/2 ML Vial IVP PRN (07:24)
[2018-08-04] MEDS: Aspirin 325 mg Enteric Coated Tablet PO SCH (08:03)
[2018-08-04] MEDS: Famotidine 20 MG TAB PO SCH ×2 (08:04→22:01)
[2018-08-04] MEDS: Potassium Chloride 10 MEQ TAB PO SCH (08:04)
[2018-08-04] MEDS: Metoprolol Tartrate 25 MG TAB PO SCH ×2 (08:04→21:55)
[2018-08-04] MEDS: Furosemide 40 MG TAB PO SCH (08:04)
[2018-08-04] MEDS: Pregabalin 75 MG CAP PO SCH (08:04)
--- NOTE | 2018-08-04 08:11 | RAD ---
PORTABLE CHEST: History: Post op open heart surgery. Comparison: Prior day's study. FINDINGS: Heart size within normal limits. Post op sternotomy changes are seen. Right subclavian line is unchan ged in position. Lungs are clear of infiltrates. IMPRESSION: Stable chest. POS: [facility]
[2018-08-04] MEDS ORDERED: Pregabalin 75 MG CAP PO SCH (09:00)
[2018-08-04] MEDS ORDERED: DEXLANSOPRAZOLE PO SCH (09:00)
[2018-08-04] MEDS: Levothyroxine 175 MCG TAB PO SCH (09:19)
--- NOTE | 2018-08-04 10:23 | PRG ---
DATE OF SERVICE: 08/04/2018 SUBJECTIVE: Jose Pearson has no complaints. Still has the chest tube in and he is sitting at the bedside. OBJECTIVE: VITAL SIGNS: He is afebrile. Heart rate 83, respiratory rate 18, oximetry is 99% on room air, blood pressure 116/63. Chest tube drainage was 380 mL. LUNGS: Clear. HEART: Regular rhythm. ABDOMEN: Soft. EXTREMITIES: Without edema. His feet are warm. DIAGNOSTIC DATA: Chest x-ray reviewed by me, is unchanged. LABORATORY DATA: White count 8.4, hemoglobin 7.7, platelets 148. Electrolytes are normal. IMPRESSION: 1. Status post coronary artery bypass grafting. 2. Tobacco use with probable component of COPD. He says he is clinically feeling better with nebulizer treatments and use of his spirometer. We will continue to follow. Job ID: [id number]
[2018-08-04] MEDS: Atorvastatin Calcium 20 MG TAB PO SCH (22:01)
--- NOTE | 2018-08-05 06:06 | PDOC.CTH ---
Cardiology Progress Note - Subjective pt with no current complaints. Pt is oozing from his sternal wound site. - Objective Vital Signs Temp Pulse Ox 08/05/18 02:28 95 08/04/18 19:00 99.3 F 98 Weight 215 lb 6.266 oz 08/03/18 08/04/18 08/05/18 06:59 06:59 06:59 Intake Total 3215.8 2828.6 1400 Output Total 2774 1152 1120 Balance 441.8 1676.6 280 - Physical Examination General/Neuro: alert & oriented x3, NAD Neck: carotid US brisk Lungs: CTA, unlabored respirations Heart: PMI normal, RRR Abdomen: NT/ND, soft Extremities: + femoral B - Telemetry Telemetry Rhythm: RRR - Labs Result Diagrams: 08/05/18 07:09 08/04/18 03:25 - Assessment/Plan Severe CAD s/p CABG Severe PVD Pt off pressors Add low dose BB On ASA, statin Vancomycin started
[2018-08-05] MEDS: HYDROcodone/Acetaminophen 5/325 mg Tablet PO PRN ×3 (07:11→19:44)
[2018-08-05 07:18] LABS: #Eosinphils 0.6 thou/uL (0.0-0.7); #Lymphocytes 1.2 thou/uL (1.20-3.40); #Monocytes 0.9 thou/uL (0.11-0.59); #Neutrophils 6.5 thou/uL (1.40-6.50); %Basophils 0.5 % (0.0-1.0); %Eosinophils 6.5 % (0.0-10.0); %Lymphocytes 12.5 % (21.0-51.0); %Neutrophils 70.4 % (42.0-75.0); Hemoglobin 8.4 g/dL (14.0-18.0); Mean Corpuscular HGB CONC 33.2 g/dL (32.0-36.0); Mean Corpuscular Volume 93.6 fL (78.0-98.0); Mean Platelet Volume 7.5 fL (7.4-10.4); Platelet Count 175 thou/uL (130-400); RBC Distribution Width 12.2 % (11.5-14.5); Red Blood Cell (RBC) Count 2.69 mill/uL (4.70-6.10); White Blood Cell (WBC) Count 9.2 thou/uL (4.8-10.8)
[2018-08-05] MEDS: Famotidine 20 MG TAB PO SCH ×2 (07:43→19:43)
[2018-08-05] MEDS: Metoprolol Tartrate 25 MG TAB PO SCH ×2 (07:43→19:44)
[2018-08-05] MEDS: Furosemide 40 MG TAB PO SCH (07:43)
[2018-08-05] MEDS: Potassium Chloride 10 MEQ TAB PO SCH (07:43)
[2018-08-05] MEDS: Aspirin 325 mg Enteric Coated Tablet PO SCH (07:43)
[2018-08-05] MEDS: Pregabalin 75 MG CAP PO SCH (07:44)
[2018-08-05] MEDS: Levothyroxine 175 MCG TAB PO SCH (08:24)
[2018-08-05] MEDS: Piperacillin/Tazobactam 3.375 GM in Sodium Chloride 0.9% 100 ML IVPB SCH ×3 (08:28→23:10)
[2018-08-05] MEDS: Vancomycin HCl 1 GM in Premix Bag 1 BAG IVPB SCH ×2 (08:32→19:43)
--- NOTE | 2018-08-05 10:38 | PQF ---
DATE: 08-05-18 ATTN: DR. YAZ NINO Please exercise your independent, professional judgment in responding to the clarification form. Clinical indicators are provided on the bottom of this form for your review Please check appropriate box(s): [ y ] Acute blood loss anemia DUE TO CABG [y ] Acute blood loss anemia DUE TO ASA & PLAVIX [ ] Other diagnosis [ ] Unable to determine In addition, please specify: Present on Admission (POA): [ ] Yes [ ] No [ ] Unable to determine For continuity of documentation, please document condition throughout progress notes and discharge summary. Thank You. CLINICAL INDICATORS - SIGNS / SYMPTOMS / LABS OP REPORT 08/02: The patient had oozing from all surfaces on the median sternotomy, suggesting that he was taking his Plavix at home. ...The patient had oozing from needle holes on the aorta and initial platelet pack was given and a second one was ordered. 08/03 PN (TRUNG): Stable w/post op bleeding 2/2 ASA & Plavix. Hgb 8 after 1U, 2nd infusing. 08/04 PN (TRUNG): Hgb 7.7 > unit of RBC H/H: 9.3/27.9 - 7.7/22.9 (08/02 - 08/04) RISK FACTORS OPERATIVE REPORT 08-02-18: CABG TREATMENTS: LEUKOCYTE REDUCED RED BLOOD CELLS: TRANSFUSED 08-02-18 350ML LEUKOCYTE REDUCED RED BLOOD CELLS: TRANSFUSED 08-03-18 400ML LEUKOCYTE REDUCED RED BLOOD CELLS: TRANSFUSED 08-04-18 350ML PLATELETS 08-02-18: TRANSFUSED 250ML (This form is maintained as a part of the permanent medical record) 2014 [employer]. All Rights Reserved [email or web address] Office: [phone] [facility]
--- NOTE | 2018-08-05 17:07 | PRG ---
DATE OF SERVICE: 08/05/2018 SUBJECTIVE: Jose Pearson sitting in a bedside chair. He has no complaints. He has had no breathing problems. OBJECTIVE: VITAL SIGNS: Afebrile, heart rate 82, and blood pressure 105/40. LUNGS: Clear. HEART: Regular rhythm. ABDOMEN: Soft. EXTREMITIES: Warm without edema. LABORATORY DATA: White count is 9.2, hemoglobin 8.4, platelets 175. Sodium 140, potassium 3.9, chloride 109, bicarb 25, BUN 22, and creatinine 0.9. IMPRESSION: 1. Status post coronary artery bypass grafting. 2. Tobacco use up until this admission, likely some component of chronic obstructive pulmonary disease, improved with nebulized therapy. We will continue to follow the other physicians. Job ID: [id number]
[2018-08-05] MEDS: Atorvastatin Calcium 20 MG TAB PO SCH (19:43)
[2018-08-06] MEDS: HYDROcodone/Acetaminophen 5/325 mg Tablet PO PRN ×4 (02:30→23:23)
[2018-08-06 05:49] LABS: #Eosinphils 0.7 thou/uL (0.0-0.7); #Lymphocytes 1.3 thou/uL (1.20-3.40); #Monocytes 0.8 thou/uL (0.11-0.59); %Basophils 0.4 % (0.0-1.0); %Eosinophils 9.5 % (0.0-10.0); %Lymphocytes 16.1 % (21.0-51.0); %Monocytes 9.6 % (0.0-10.0); %Neutrophils 64.5 % (42.0-75.0); Mean Corpuscular HGB CONC 33.5 g/dL (32.0-36.0); Mean Corpuscular Hemoglobin 30.7 pg (27.0-31.0); Mean Corpuscular Volume 91.7 fL (78.0-98.0); Mean Platelet Volume 7.3 fL (7.4-10.4); Platelet Count 200 thou/uL (130-400); RBC Distribution Width 13.7 % (11.5-14.5); Red Blood Cell (RBC) Count 2.94 mill/uL (4.70-6.10); White Blood Cell (WBC) Count 7.8 thou/uL (4.8-10.8)
[2018-08-06 06:09] LABS: Anion Gap 8 mmol/L (10-20); BUN (Urea Nitrogen) 17 mg/dL (8.4-25.7); Calc. Creatinine Clearance 115 mL/min (70-130); Calcium 8.5 mg/dL (7.8-10.44); Carbon Dioxide 30 mmol/L (22-29); Chloride 104 mmol/L (98-107); Estimated GFR-MDRD 80; Glucose 89 mg/dL (70-105); Potassium 3.9 mmol/L (3.5-5.1); Sodium 138 mmol/L (136-145)
[2018-08-06] MEDS: Metoprolol Tartrate 25 MG TAB PO SCH ×2 (07:12→21:28)
[2018-08-06] MEDS: Vancomycin HCl 1 GM in Premix Bag 1 BAG IVPB SCH ×2 (07:14→20:55)
[2018-08-06] MEDS: Piperacillin/Tazobactam 3.375 GM in Sodium Chloride 0.9% 100 ML IVPB SCH ×3 (07:15→23:23)
[2018-08-06] MEDS ORDERED: Fentanyl 100 MCG/2 ML VIAL ONE (07:38)
--- NOTE | 2018-08-06 08:50 | PDOC.CTH ---
Cardiology Progress Note - Subjective pt back to the OR yesterday to debride the would. Pt with wound vac in place. No complaints noted. - Objective Vital Signs Temp Pulse Ox 08/06/18 08:00 98.8 F 08/06/18 04:00 100 08/06/18 03:00 99.2 F 08/05/18 23:00 99.0 F Weight 215 lb 13.321 oz 08/05/18 08/06/18 08/07/18 06:59 06:59 06:59 Intake Total 1400 1911 300 Output Total 1400 3100 0 Balance 0 -1189 300 - Physical Examination General/Neuro: alert & oriented x3, NAD Neck: carotid US brisk, no JVD present Lungs: CTA, unlabored respirations Heart: PMI normal, RRR Abdomen: NT/ND, soft Extremities: + femoral B - Labs Result Diagrams: 08/06/18 05:34 08/06/18 05:34 - Assessment/Plan Severe CAD s/p CABG Severe PVD Tob use Status stable BB, statin, ASA, IS and PT Wound vac in place No other recommendations
[2018-08-06] MEDS: Potassium Chloride 10 MEQ TAB PO SCH (09:52)
[2018-08-06] MEDS ORDERED: Glycopyrrolate 0.2 MG/ML 5 ML SYRINGE ONE (09:52)
[2018-08-06] MEDS: Aspirin 325 mg Enteric Coated Tablet PO SCH (09:52)
[2018-08-06] MEDS ORDERED: ePHEDrine 50 MG/ML VIAL ONE (09:52)
[2018-08-06] MEDS ORDERED: PROPOFOL 200 MG/20 ML VIAL ONE (09:52)
[2018-08-06] MEDS ORDERED: Lidocaine 1% PF 5 ML VIAL ONE (09:52)
[2018-08-06] MEDS ORDERED: Rocuronium Bromide 10 MG/ML (10ML VIAL) ONE (09:52)
[2018-08-06] MEDS ORDERED: PHENYLEPHRINE-NS 100 MCG/ML 10 ML SYRINGE ONE (09:52)
[2018-08-06] MEDS ORDERED: Ondansetron PF 4 MG/2 ML Vial ONE (09:52)
[2018-08-06] MEDS: Furosemide 40 MG TAB PO SCH (09:53)
[2018-08-06] MEDS: Famotidine 20 MG TAB PO SCH ×2 (09:53→21:27)
[2018-08-06] MEDS: Levothyroxine 175 MCG TAB PO SCH (09:53)
[2018-08-06] MEDS: Pregabalin 75 MG CAP PO SCH (09:53)
[2018-08-06] MEDS ORDERED: Polyethylene Glycol 3350 17 GM Packet PO SCH (10:15)
--- NOTE | 2018-08-06 10:27 | RAD ---
FRadiograph chest one view: 08/06/2018 10:07 AM HISTORY: 58-year-old male with "post operative sternal wound opening" COMPARISON: 08/04/2018 FINDINGS: There has been interval increase in the transverse diameter of the cardiac shadow now compared to the prior study. Sternotomy wires and right subclavian central line are again noted. No pulmonary venous congestion or pulmonary edema. No consolidation or pneumothorax. IMPRESSION: 1. Interval development of mild cardiomegaly without congestive heart failure. 2. No other interval change.
--- NOTE | 2018-08-06 14:04 | PRG ---
DATE OF SERVICE: 08/06/2018 SUBJECTIVE: Mr. Pearson went back to the OR today because he continued to drain out of the superior aspect of his wound. He has drained blood yesterday. His wound washed out and wound VAC applied. He is extubated postop. His is back in the Critical Care Unit and says he feels fine. He is awake, alert, and oriented. OBJECTIVE: VITAL SIGNS: Blood pressure 96/48, heart rate 70, respiratory rate is 12, and oximetry is 94. LUNGS: Clear. He is not wheezing. HEART: Regular rhythm. ABDOMEN: Soft. LABORATORY DATA: White count 7.8, hemoglobin 9.0, and platelets 200,000. Sodium 138, potassium 3.9, chloride 104, bicarb 30, BUN 17, and creatinine 0.96. IMPRESSION: 1. Status post coronary artery bypass grafting. 2. Chronic obstructive pulmonary disease, suspect with mild bronchospasm postop. 3. Status post sternal wound washout and wound VAC application. Clinically, stable at this time. We will continue to follow. Job ID: [id number]
[2018-08-06 19:39] LABS: Vancomycin, Trough 13.9 ug/mL
[2018-08-06] MEDS: Enoxaparin Sodium 40 MG/0.4 ML SYRINGE SC SCH (21:27)
[2018-08-06] MEDS: Atorvastatin Calcium 20 MG TAB PO SCH (21:27)
[2018-08-07] MEDS: HYDROcodone/Acetaminophen 5/325 mg Tablet PO PRN ×3 (04:52→23:47)
[2018-08-07] MEDS: Piperacillin/Tazobactam 3.375 GM in Sodium Chloride 0.9% 100 ML IVPB SCH (09:27)
[2018-08-07] MEDS: Levothyroxine 175 MCG TAB PO SCH (09:28)
[2018-08-07] MEDS: Potassium Chloride 10 MEQ TAB PO SCH (09:28)
[2018-08-07] MEDS: Furosemide 40 MG TAB PO SCH (09:28)
[2018-08-07] MEDS: Aspirin 325 mg Enteric Coated Tablet PO SCH (09:28)
[2018-08-07] MEDS: Pregabalin 75 MG CAP PO SCH (09:29)
[2018-08-07] MEDS: Vancomycin HCl 1 GM in Premix Bag 1 BAG IVPB SCH ×2 (09:30→20:33)
[2018-08-07] MEDS: Polyethylene Glycol 3350 17 GM Packet PO SCH (09:30)
[2018-08-07] MEDS: Famotidine 20 MG TAB PO SCH ×2 (09:32→20:34)
[2018-08-07] MEDS: Metoprolol Tartrate 25 MG TAB PO SCH ×2 (09:33→20:34)
--- NOTE | 2018-08-07 13:37 | PDOC.CTH ---
Cardiology Progress Note - Subjective Patient doing well. No complaints overnight. - Objective Vital Signs Temp Pulse Pulse Pulse Resp BP BP 08/07/18 12:43 62 61 149/68 H 130/66 08/07/18 08:00 08/07/18 03:05 98.7 F 65 16 BP Pulse Ox Pulse Ox Pulse Ox 08/07/18 12:43 97 95 08/07/18 08:00 95 08/07/18 03:05 104/58 L 98 Weight 202 lb 4.8 oz 08/06/18 08/07/18 08/08/18 06:59 06:59 06:59 Intake Total 1911 1565 Output Total 3100 1750 Balance -1189 -185 - Physical Examination General/Neuro: alert & oriented x3 Neck: no JVD present Lungs: CTA Heart: RRR - Telemetry Telemetry Rhythm: SR - Labs Result Diagrams: 08/06/18 05:34 08/06/18 05:34 - Assessment/Plan 1. Severe 2VCAD s/p CABG 2. PAD 3. Long history of tobacco abuse 4. HTN 5. HLD 6. s/p sternal wash-out with wound vac Overall doing well. No changes to care today. Continue to increase actvity as tolerated.
--- NOTE | 2018-08-07 18:11 | PRG ---
DATE OF SERVICE: 08/07/2018 SUBJECTIVE: Jose Pearson is in no distress. Dr. Summers has actually told him to slow down. He just want to walk in the [place]ing[place] and want to go outside. OBJECTIVE: VITAL SIGNS: Blood pressure 149/68, heart rate 62, and respiratory rate is 18. LUNGS: Clear. HEART: Regular rhythm. He has a wound VAC in place. ABDOMEN: Soft. LABORATORY DATA: There is no new lab today. IMPRESSION AND PLAN: 1. Sternal drainage, status post exploration of his sternum with debridement and wound vacuum-assisted closure placement. a. Sternal wound cultures are not growing anything so far. b. We will continue with supportive care. 2. He has a tobacco history, but he is not having clinical bronchospasm at this time. We will continue to follow. Job ID: [id number]
[2018-08-07] MEDS: Atorvastatin Calcium 20 MG TAB PO SCH (20:34)
[2018-08-07] MEDS: Enoxaparin Sodium 40 MG/0.4 ML SYRINGE SC SCH (20:34)
[2018-08-08] MEDS: Vancomycin HCl 1 GM in Premix Bag 1 BAG IVPB SCH (08:36)
[2018-08-08] MEDS: Metoprolol Tartrate 25 MG TAB PO SCH ×2 (08:37→21:11)
[2018-08-08] MEDS: Famotidine 20 MG TAB PO SCH ×2 (08:37→21:11)
[2018-08-08] MEDS: Pregabalin 75 MG CAP PO SCH (08:38)
[2018-08-08] MEDS: Levothyroxine 175 MCG TAB PO SCH (08:38)
[2018-08-08] MEDS: Aspirin 325 mg Enteric Coated Tablet PO SCH (08:38)
[2018-08-08] MEDS: Polyethylene Glycol 3350 17 GM Packet PO SCH (08:41)
[2018-08-08] MEDS: HYDROcodone/Acetaminophen 5/325 mg Tablet PO PRN ×3 (08:43→21:11)
[2018-08-08] MEDS ORDERED: Lisinopril 5 MG TAB PO SCH (09:00)
--- NOTE | 2018-08-08 11:18 | OP ---
DATE OF PROCEDURE: 08/06/2018 PREOPERATIVE DIAGNOSIS: Sternal wound drainage. PROCEDURE: I and D sternal wound incision. ANESTHESIA: General. ESTIMATED BLOOD LOSS: Minimal. DESCRIPTION OF PROCEDURE: After adequate anesthesia had been obtained, the patient was prepped and draped. Incision was reopened in its entirety. There was no significant drainage present. No purulent appearing fluid. Sternum was slightly by a mm or 2 and several wires were secured. The area was then thoroughly irrigated with 2 L of saline and a wound VAC was to be applied. Cultures were repeated and it should be noted that the initial cultures from yesterday morning were still pending with white cells only. Job ID: [id number]
[2018-08-08 16:47] VITALS: BMI 30.7
--- NOTE | 2018-08-08 17:17 | PRG ---
DATE OF SERVICE: 08/08/2018 SUBJECTIVE: Mr. Pearson did well overnight. Unfortunately, someone unplugged his wound VAC and it was not plugged back in. He woke up with a wound VAC on his chest full of fluid. This was plugged in and turned on and all fluid was evacuated early this morning. OBJECTIVE: VITAL SIGNS: He is afebrile, heart rate is 79, respiratory rate is 15, oximetry is 97% on room air, and blood pressure is 161/83. LUNGS: Remarkable for clear breath sounds. HEART: Regular rhythm. ABDOMEN: Soft. LABORATORY DATA: There is no new lab today. IMPRESSION AND PLAN: Status post debridement for possible wound infection with negative cultures. Cultures remain negative. We will continue to follow. He is having no respiratory issues. He has a long history of smoking at this time. Job ID: [id number]
[2018-08-08] MEDS: Atorvastatin Calcium 20 MG TAB PO SCH (21:10)
[2018-08-08] MEDS: Enoxaparin Sodium 40 MG/0.4 ML SYRINGE SC SCH (21:10)
--- NOTE | 2018-08-08 21:16 | PDOC.CTH ---
Cardiology Progress Note - Subjective Patient seen at 0830. Denies any CP, SOB or SANCHEZ. Mentions that wound vac was discontinued overnight and had swelling/bleeding. Now resolved. Overall feels good. Walking without difficulty. BP somewhat labile. - Objective Vital Signs Temp Pulse Pulse Pulse Resp BP BP 08/08/18 16:41 98.5 F 60 13 08/08/18 12:38 98.8 F 66 14 08/08/18 10:59 67 67 139/77 142/67 H BP Pulse Ox Pulse Ox Pulse Ox 08/08/18 16:41 140/74 98 08/08/18 12:38 141/75 H 98 08/08/18 10:59 100 99 Admit Weight 200 lb Weight 214 lb 3.2 oz 08/07/18 08/08/18 08/09/18 06:59 06:59 06:59 Intake Total 1565 1540 Output Total 1750 1000 Balance -185 540 - Physical Examination General/Neuro: alert & oriented x3 Neck: no JVD present Lungs: CTA Heart: RRR Abdomen: NT/ND - Labs Result Diagrams: 08/06/18 05:34 08/06/18 05:34 - Assessment/Plan 1. Severe 2VCAD s/p CABG 2. PAD 3. Long history of tobacco abuse 4. HTN 5. HLD 6. s/p sternal wash-out with wound vac No changes today. Continue PT and wound care.
[2018-08-09] MEDS ORDERED: Lisinopril 5 MG TAB PO SCH (06:00)
[2018-08-09] MEDS: HYDROcodone/Acetaminophen 5/325 mg Tablet PO PRN ×2 (06:41→17:28)
[2018-08-09] MEDS: Famotidine 20 MG TAB PO SCH (08:09)
[2018-08-09] MEDS: Polyethylene Glycol 3350 17 GM Packet PO SCH (08:09)
[2018-08-09] MEDS: Metoprolol Tartrate 25 MG TAB PO SCH (08:09)
[2018-08-09] MEDS: Levothyroxine 175 MCG TAB PO SCH (08:09)
[2018-08-09] MEDS: Aspirin 325 mg Enteric Coated Tablet PO SCH (08:09)
[2018-08-09] MEDS: Pregabalin 75 MG CAP PO SCH (08:10)
--- NOTE | 2018-08-09 08:46 | PDOC.CTH ---
Cardiology Progress Note - Subjective Doing well. No complaints. - Objective Vital Signs Temp Pulse Resp BP BP Pulse Ox 08/09/18 07:30 99.0 F 75 18 142/75 H 96 08/09/18 06:47 70 163/81 H 08/09/18 04:00 98.9 F 70 19 163/81 H 97 Admit Weight 200 lb Weight 200 lb 08/08/18 08/09/18 08/10/18 06:59 06:59 06:59 Intake Total 1940 Output Total 1700 Balance 240 - Physical Examination General/Neuro: alert & oriented x3, NAD Neck: carotid US brisk, no JVD present Lungs: CTA, unlabored respirations Heart: PMI normal, RRR Abdomen: NT/ND, soft Extremities: + femoral B - Telemetry Telemetry Rhythm: SR - Labs Result Diagrams: 08/06/18 05:34 08/06/18 05:34 - Assessment/Plan 1. Severe 2VCAD s/p CABG 2. PAD 3. Long history of tobacco abuse 4. HTN 5. HLD 6. s/p sternal wash-out with wound vac CV status stable Home today On BB, ASA, statin Fu in 3-4 weeks
[2018-08-09 12:28] VITALS: TEMP 97.8
[2018-08-09 14:43] VITALS: BP 178/85
--- NOTE | 2018-08-10 03:13 | DIS ---
DATE OF ADMISSION: 08/01/2018 DATE OF DISCHARGE: 08/09/2018 HOSPITAL COURSE: The patient was brought to the hospital on 08/01/2018, for cardiac catheterization, which was carried out. He was found to have left main and ostial right coronary disease, and was taken to the operating room the following day, where he underwent coronary artery bypass grafting to the LAD, right coronary artery, OM1 and OM2. Postoperatively, he developed some sternal wound drainage at the top of his sternum that appeared to be suspicious for infection and cultures were obtained. He continued to drain a large amount of fluid and about 36 hours after the initial onset of drainage, he was taken to the operating room. Further cultures were obtained. Subcutaneous tissues were opened and sternal wires were tightened where they had loosened from coughing. All cultures both before and after opening were negative for infection. Wound VAC was placed and he will be discharged home with a home wound VAC, to follow up with me in about 2 weeks. DISCHARGE MEDICATIONS: Include; 1. Metoprolol 25 b.i.d. 2. Lisinopril 10 daily. 3. Atorvastatin 20 daily. 4. Aspirin 1 a day. 5. Palmetto for pain. 6. He will also resume his anxiety and psychiatric medications. Discharge and followup instructions have been given. Job ID: [id number]
== END 2018-08-09 18:17 | disposition home or self-care (01) | DRG 234 ==
LOC: CCL 06:06 → 2SE 09:12 → CCU 08-02 07:05 → 2NO 08-07 03:14
PROVIDERS: ADMIT Internal Medicine Cardiovascular Disease; ATTEND Internal Medicine Cardiovascular Disease
PROC: 4A023N7 Measurement of Cardiac Sampling and Pressure, Left Heart, Percutaneous Approach (ICD-10-PCS; 2018-08-01)
PROC: B2111ZZ Fluoroscopy of Multiple Coronary Arteries using Low Osmolar Contrast (ICD-10-PCS; 2018-08-01)
PROC: 0213099 Bypass Coronary Artery, Four or More Arteries from Left Internal Mammary with Autologous Venous Tissue, Open Approach (ICD-10-PCS; principal; 2018-08-02)
PROC: 5A1221Z Performance of Cardiac Output, Continuous (ICD-10-PCS; 2018-08-02)
PROC: 30233R1 Transfusion of Nonautologous Platelets into Peripheral Vein, Percutaneous Approach (ICD-10-PCS; 2018-08-02)
PROC: 30233N1 Transfusion of Nonautologous Red Blood Cells into Peripheral Vein, Percutaneous Approach (ICD-10-PCS; 2018-08-02)
PROC: 06BQ0ZZ Excision of Left Saphenous Vein, Open Approach (ICD-10-PCS; 2018-08-02)
PROC: 30233N1 Transfusion of Nonautologous Red Blood Cells into Peripheral Vein, Percutaneous Approach (ICD-10-PCS; 2018-08-03)
PROC: 30233N1 Transfusion of Nonautologous Red Blood Cells into Peripheral Vein, Percutaneous Approach (ICD-10-PCS; 2018-08-04)
PROC: 30233N1 Transfusion of Nonautologous Red Blood Cells into Peripheral Vein, Percutaneous Approach (ICD-10-PCS; 2018-08-05)
PROC: 0J960ZX Drainage of Chest Subcutaneous Tissue and Fascia, Open Approach, Diagnostic (ICD-10-PCS; 2018-08-06)
DX: I25.10 Atherosclerotic heart disease of native coronary artery without angina pectoris (principal); D62 Acute posthemorrhagic anemia; I97.611 Postprocedural hemorrhage of a circulatory system organ or structure following cardiac bypass; T81.41XA Infection following a procedure, superficial incisional surgical site, initial encounter; F17.210 Nicotine dependence, cigarettes, uncomplicated; J44.9 Chronic obstructive pulmonary disease, unspecified; Y83.8 Other surgical procedures as the cause of abnormal reaction of the patient, or of later complication, without mention of misadventure at the time of the procedure; Y92.230 Patient room in hospital as the place of occurrence of the external cause; T39.015A Adverse effect of aspirin, initial encounter; T45.525A Adverse effect of antithrombotic drugs, initial encounter; I77.1 Stricture of artery; F41.9 Anxiety disorder, unspecified; I10 Essential (primary) hypertension; E03.9 Hypothyroidism, unspecified; I73.9 Peripheral vascular disease, unspecified; Z96.652 Presence of left artificial knee joint; Z98.890 Other specified postprocedural states; Z79.899 Other long term (current) drug therapy; Z79.82 Long term (current) use of aspirin; Z79.02 Long term (current) use of antithrombotics/antiplatelets; Z82.49 Family history of ischemic heart disease and other diseases of the circulatory system
CPT/HCPCS: 36415; 36416; 36430; 71045; 76942; 80048; 80202; 82805; 85025; 85610; 85730; 86850; 86900; 86901; 87070; 87205; 93005; 93010; 93454; 93798; 94002; 94640; C1769; J0670; J1100; J1642; J1644; J1650; J1815; J1885; J2001; J2150; J2250; J2405; J2440; J2543; J2704; J2720; J3010; J3370; J3475; J3480; J3490; J7050; J7620; P9016; P9035; P9045; Q9967; S0017; S0028

== ENCOUNTER 2018-08-11 11:32 | Outpatient (CLI) | payer OTHER ==
[2018-08-11] MEDS ORDERED: Sodium Chloride 0.9% 15 ML NEB ONE (21:30)
== END 2018-08-11 11:33 | disposition home or self-care (01) ==
LOC: WCC 11:32
PROVIDERS: ATTEND Family Medicine
DX: T81.89XD Other complications of procedures, not elsewhere classified, subsequent encounter (principal)
CPT/HCPCS: 97605; A4218

== ENCOUNTER 2018-08-15 11:15 | Outpatient (CLI) | payer OTHER ==
[2018-08-15] MEDS ORDERED: Sodium Chloride 0.9% 15 ML NEB ONE (17:42)
== END 2018-08-15 11:16 | disposition home or self-care (01) ==
LOC: WCC 11:15
PROVIDERS: ATTEND Family Medicine
DX: T81.89XD Other complications of procedures, not elsewhere classified, subsequent encounter (principal)
CPT/HCPCS: 97605; A4218

== ENCOUNTER 2018-08-17 11:34 | Outpatient (CLI) | payer OTHER ==
[2018-08-17] MEDS ORDERED: Sodium Chloride 0.9% 15 ML NEB ONE (17:29)
== END 2018-08-17 11:35 | disposition home or self-care (01) ==
LOC: WCC 11:34
PROVIDERS: ATTEND Family Medicine
DX: T81.89XD Other complications of procedures, not elsewhere classified, subsequent encounter (principal)
CPT/HCPCS: 97605; A4218

== ENCOUNTER 2018-08-19 15:02 | Outpatient (CLI) | payer OTHER | END 2018-08-19 15:03 | disposition home or self-care (01) | LOC: WCC 15:02 | PROVIDERS: ATTEND Family Medicine | DX: T81.89XD Other complications of procedures, not elsewhere classified, subsequent encounter (principal) | CPT/HCPCS: 97605 ==

== ENCOUNTER 2018-08-22 15:27 | Outpatient (CLI) | payer OTHER | END 2018-08-22 15:28 | disposition home or self-care (01) | LOC: WCC 15:27 | PROVIDERS: ATTEND Family Medicine | DX: T81.89XD Other complications of procedures, not elsewhere classified, subsequent encounter (principal) | CPT/HCPCS: 97605 ==

== ENCOUNTER 2018-08-24 15:55 | Outpatient (CLI) | payer OTHER ==
[~2018-08-24 15:55] MED LIST: Sodium Chloride 0.9% 15 ML NEB ONE
== END 2018-08-24 15:56 | disposition home or self-care (01) ==
LOC: WCC 15:55
PROVIDERS: ATTEND Family Medicine
DX: T81.89XD Other complications of procedures, not elsewhere classified, subsequent encounter (principal)
CPT/HCPCS: 97605; A4218

== ENCOUNTER 2018-08-26 11:00 | Outpatient (CLI) | payer OTHER ==
[2018-08-26] MEDS ORDERED: Sodium Chloride 0.9% 15 ML NEB ONE (19:21)
== END 2018-08-26 11:01 | disposition home or self-care (01) ==
LOC: WCC 11:00
PROVIDERS: ATTEND Family Medicine
DX: T81.89XD Other complications of procedures, not elsewhere classified, subsequent encounter (principal)
CPT/HCPCS: 97605; A4218

== ENCOUNTER 2018-08-29 14:03 | Outpatient (CLI) | payer OTHER ==
[2018-08-29] MEDS ORDERED: Sodium Chloride 0.9% 15 ML NEB ONE (19:23)
== END 2018-08-29 14:04 | disposition home or self-care (01) ==
LOC: WCC 14:03
PROVIDERS: ATTEND Family Medicine
DX: T81.89XD Other complications of procedures, not elsewhere classified, subsequent encounter (principal)
CPT/HCPCS: 97605; A4218

== ENCOUNTER 2018-08-31 10:43 | Outpatient (CLI) | payer OTHER | END 2018-08-31 10:44 | disposition home or self-care (01) | LOC: WCC 10:43 | PROVIDERS: ATTEND Family Medicine | DX: T81.89XD Other complications of procedures, not elsewhere classified, subsequent encounter (principal) | CPT/HCPCS: 97605; A4218 ==

== ENCOUNTER 2018-09-02 13:59 | Outpatient (CLI) | payer OTHER ==
[2018-09-02] MEDS ORDERED: Sodium Chloride 0.9% 15 ML NEB ONE (18:13)
== END 2018-09-02 14:00 | disposition home or self-care (01) ==
LOC: WCC 13:59
PROVIDERS: ATTEND Family Medicine
DX: T81.89XD Other complications of procedures, not elsewhere classified, subsequent encounter (principal)
CPT/HCPCS: 97605; A4218

== ENCOUNTER 2018-09-07 15:06 | Outpatient (CLI) | payer OTHER ==
[2018-09-07] MEDS ORDERED: Sodium Chloride 0.9% 15 ML NEB ONE (21:29)
== END 2018-09-07 15:07 | disposition home or self-care (01) ==
LOC: WCC 15:06
PROVIDERS: ATTEND Family Medicine
DX: T81.89XD Other complications of procedures, not elsewhere classified, subsequent encounter (principal)
CPT/HCPCS: 97605; A4218

== ENCOUNTER 2018-09-09 13:35 | Outpatient (CLI) | payer OTHER ==
[2018-09-09] MEDS ORDERED: Sodium Chloride 0.9% 15 ML NEB ONE (15:00)
== END 2018-09-09 13:36 | disposition home or self-care (01) ==
LOC: WCC 13:35
PROVIDERS: ATTEND Family Medicine
DX: T81.89XD Other complications of procedures, not elsewhere classified, subsequent encounter (principal)
CPT/HCPCS: 97605; A4218

== ENCOUNTER 2018-09-11 14:39 | Emergency (ER) | payer OTHER ==
[2018-09-11 15:05] LABS: #Eosinphils 0.1 thou/uL (0.0-0.7); #Lymphocytes 1.6 thou/uL (1.20-3.40); #Monocytes 1.2 thou/uL (0.11-0.59); #Neutrophils 8.8 thou/uL (1.40-6.50); %Basophils 0.4 % (0.0-1.0); %Eosinophils 1.1 % (0.0-10.0); %Lymphocytes 13.9 % (21.0-51.0); %Monocytes 10.5 % (0.0-10.0); %Neutrophils 74.2 % (42.0-75.0); Hemoglobin 12.2 g/dL (14.0-18.0); Mean Corpuscular HGB CONC 33.8 g/dL (32.0-36.0); Mean Corpuscular Hemoglobin 29.5 pg (27.0-31.0); Mean Corpuscular Volume 87.3 fL (78.0-98.0); Mean Platelet Volume 6.4 fL (7.4-10.4); Platelet Count 390 thou/uL (130-400); RBC Distribution Width 12.6 % (11.5-14.5); Red Blood Cell (RBC) Count 4.13 mill/uL (4.70-6.10); White Blood Cell (WBC) Count 11.8 thou/uL (4.8-10.8)
--- NOTE | 2018-09-11 15:05 | RAD ---
Chest AP view INDICATION: Chest pain COMPARISON: August 06, 2018 FINDINGS: Lungs:The lungs are clear Cardiac silhouette pulmonary vasculature:The cardiomediastinal silhouette appears within normal limit s. Stable post-CABG change. Pleural spaces:No pleural effusion or pneumothorax is demonstrated. Upper abdomen:No abnormality seen. Osseous structures: No acute osseous abnormality. Additional findings:None. IMPRESSION: No acute cardiopulmonary abnormality.
[2018-09-11 15:30] LABS: ALT (SGPT) 14 U/L (8-55); AST (SGOT) 18 U/L (5-34); Albumin 4.1 g/dL (3.5-5.0); Alkaline Phosphatase 95 U/L (40-150); Anion Gap 15 mmol/L (10-20); BUN (Urea Nitrogen) 27 mg/dL (8.4-25.7); Bilirubin, Total 0.5 mg/dL (0.2-1.2); Calc. Creatinine Clearance 0 mL/min (70-130); Calcium 10.1 mg/dL (7.8-10.44); Carbon Dioxide 26 mmol/L (22-29); Chloride 97 mmol/L (98-107); Estimated GFR-MDRD 52; Globulin 3.7 g/dL (2.4-3.5); Glucose 117 mg/dL (70-105); Potassium 4.5 mmol/L (3.5-5.1); Protein, Total 7.8 g/dL (6.0-8.3); Sodium 133 mmol/L (136-145)
== END 2018-09-11 16:37 | disposition home or self-care (01) ==
LOC: ERS 14:39
DX: R07.89 Other chest pain (principal); I10 Essential (primary) hypertension; Z87.891 Personal history of nicotine dependence
CPT/HCPCS: 36415; 71045; 80053; 83880; 84484; 85025; 93005

== ENCOUNTER 2018-09-12 09:45 | Outpatient (CLI) | payer OTHER ==
--- NOTE | 2018-09-12 14:43 | HP ---
HISTORY OF PRESENT ILLNESS: Mr. Jose Pearson is a very pleasant 58-year-old gentleman, who presents to the [facility] for evaluation of a sternal wound subsequent to incision and drainage of a sternal wound incision on 08/06/[address] Angelo Summers. Previously, the patient had undergone coronary artery bypass grafting x4. The patient is presently receiving negative pressure therapy with dressing changes of the wound VAC 3 times per week here in the Wound Center. The patient states that within the next few weeks he is to undergo sternal wire removal and flap placement by [facility]. The patient complains of thick drainage associated with his wound. He states that the consistency of the drainage has caused his wound VAC to not function properly. PAST MEDICAL HISTORY: 1. Hypertension. 2. Hypothyroidism. 3. Peripheral vascular disease. 4. Back pain. 5. Coronary artery disease. PAST SURGICAL HISTORY: 1. Left knee surgery x2 in 2003 and in 2014. 2. Right carotid endarterectomy with bovine patch angioplasty. 3. Bilateral common iliac artery angioplasty and stent placement/bilateral femoral endarterectomies. 4. ACD and fusion C3 to C4. 5. Coronary artery bypass grafting x4. 6. I and D of sternal wound incision, 08/06/2018. MEDICATIONS: 1. Lipitor. 2. Zestril. 3. Aspirin 81 mg. 4. Metoprolol. 5. Omeprazole. 6. Meloxicam. 7. Sertraline. 8. Hydrochlorothiazide. 9. Lyrica. 10. Levothyroxine. 11. Dexilant. ALLERGIES: NO KNOWN DIAGNOSED ALLERGIES. SOCIAL HISTORY: Social history is significant for tobacco use of up to 1-1/2 packs of cigarettes per day for over 40 years. The patient admits to the consumption of 2 drinks per week "all my life." FAMILY HISTORY: Family history is significant for coronary artery disease. The patient's father was diagnosed with coronary artery disease. Family history is also significant for diabetes mellitus. The patient states that he has multiple relatives on the paternal side of his family, who were diagnosed with diabetes mellitus. PHYSICAL EXAMINATION: VITAL SIGNS: Temperature 97.8, pulse 65, respirations 22, blood pressure 117/74. GENERAL: A 58-year-old gentleman sitting on chair in examination room, in no acute distress. HEENT: Normocephalic and atraumatic. NECK: No nuchal rigidity. CHEST: A wound of the sternum in the midline is present, which measures approximately 18.5 x 1.8 cm. Sternal wires are visible within the margins of the wound. Granulation tissue is also present within the wound margins. A sample of the drainage was sent for aerobic and anaerobic cultures. No erythema of the skin surrounding the wound is present. No maceration of the skin of the periwound is noted. CV: Regular rate and rhythm. ABDOMEN: Soft. EXTREMITIES: No clubbing or cyanosis. NEURO: Grossly nonfocal. ASSESSMENT AND PLAN: 1. Sternal wound as described above. Negative pressure therapy will be continued with dressing changes of the wound VAC 3 times per week here in the Wound Center. Antibiotic therapy maybe initiated based upon the results of the cultures obtained today. I will see Mr. Pearson again in 1 week. The patient understands and is in agreement with the preceding treatment plan. As stated above, the patient is to undergo sternal wire removal and flap placement by [facility] Pl[facility] Surgery in the next few weeks. 2. Hypertension. 3. Hypothyroidism. 4. Peripheral vascular disease. 5. Back pain. 6. Coronary artery disease. Job ID: [id number]
[2018-09-12] MEDS ORDERED: Sodium Chloride 0.9% 15 ML NEB ONE (18:00)
== END 2018-09-12 09:46 | disposition home or self-care (01) ==
LOC: WCC 09:45
PROVIDERS: ATTEND Family Medicine
DX: T81.89XD Other complications of procedures, not elsewhere classified, subsequent encounter (principal); I10 Essential (primary) hypertension; E03.9 Hypothyroidism, unspecified; I73.9 Peripheral vascular disease, unspecified; M54.9 Dorsalgia, unspecified; I25.10 Atherosclerotic heart disease of native coronary artery without angina pectoris
CPT/HCPCS: 87070; 87077; 87186; 87205; A4218

== ENCOUNTER 2018-09-14 15:31 | Outpatient (CLI) | payer OTHER ==
[2018-09-14] MEDS ORDERED: Sodium Chloride 0.9% 15 ML NEB ONE (18:00)
== END 2018-09-14 15:32 | disposition home or self-care (01) ==
LOC: WCC 15:31
PROVIDERS: ATTEND Family Medicine
DX: T81.89XD Other complications of procedures, not elsewhere classified, subsequent encounter (principal)
CPT/HCPCS: 97605; A4218

== ENCOUNTER 2018-09-16 11:52 | Outpatient (CLI) | payer OTHER ==
[2018-09-16] MEDS ORDERED: Sodium Chloride 0.9% 15 ML NEB ONE (15:00)
== END 2018-09-16 11:53 | disposition home or self-care (01) ==
LOC: WCC 11:52
PROVIDERS: ATTEND Family Medicine
DX: T81.89XD Other complications of procedures, not elsewhere classified, subsequent encounter (principal)
CPT/HCPCS: 97605; A4218

== ENCOUNTER 2018-09-21 14:23 | Outpatient (CLI) | payer OTHER | END 2018-09-21 14:24 | disposition home or self-care (01) | LOC: WCC 14:23 | PROVIDERS: ATTEND Family Medicine | DX: T81.89XD Other complications of procedures, not elsewhere classified, subsequent encounter (principal) | CPT/HCPCS: 97605 ==

== ENCOUNTER 2018-09-23 10:08 | Outpatient (CLI) | payer OTHER ==
[2018-09-23] MEDS ORDERED: Sodium Chloride 0.9% 15 ML NEB ONE (18:00)
== END 2018-09-23 10:09 | disposition home or self-care (01) ==
LOC: WCC 10:08
PROVIDERS: ATTEND Family Medicine
DX: T81.89XD Other complications of procedures, not elsewhere classified, subsequent encounter (principal)
CPT/HCPCS: 97605; A4218

== ENCOUNTER 2018-09-27 14:20 | Outpatient (CLI) | payer OTHER ==
[2018-09-27] MEDS ORDERED: Sodium Chloride 0.9% 15 ML NEB ONE (18:00)
== END 2018-09-27 14:21 | disposition home or self-care (01) ==
LOC: WCC 14:20
PROVIDERS: ATTEND Family Medicine
DX: T81.89XD Other complications of procedures, not elsewhere classified, subsequent encounter (principal)
CPT/HCPCS: 97605; A4218

== ENCOUNTER 2019-03-02 06:36 | Outpatient (CLI) | payer OTHER ==
[2019-03-02 13:43] LABS: #Eosinphils 0.3 thou/uL (0.0-0.7); #Lymphocytes 1.4 thou/uL (1.20-3.40); #Monocytes 0.8 thou/uL (0.11-0.59); #Neutrophils 5.7 thou/uL (1.40-6.50); %Basophils 0.5 % (0.0-1.0); %Lymphocytes 17.1 % (21.0-51.0); %Monocytes 9.7 % (0.0-10.0); %Neutrophils 68.6 % (42.0-75.0); Hemoglobin 12.6 g/dL (14.0-18.0); Mean Corpuscular HGB CONC 32.5 g/dL (32.0-36.0); Mean Corpuscular Hemoglobin 27.5 pg (27.0-31.0); Mean Corpuscular Volume 84.5 fL (78.0-98.0); Mean Platelet Volume 6.9 fL (7.4-10.4); Platelet Count 278 thou/uL (130-400); RBC Distribution Width 13.7 % (11.5-14.5); Red Blood Cell (RBC) Count 4.59 mill/uL (4.70-6.10); White Blood Cell (WBC) Count 8.3 thou/uL (4.8-10.8)
[2019-03-02 14:09] LABS: ALT (SGPT) 21 U/L (8-55); AST (SGOT) 24 U/L (5-34); Albumin 4.2 g/dL (3.5-5.0); Alkaline Phosphatase 111 U/L (40-110); Anion Gap 16 mmol/L (10-20); BUN (Urea Nitrogen) 26 mg/dL (8.4-25.7); Bilirubin, Direct 0.2 mg/dL (0.1-0.3); Bilirubin, Total 0.4 mg/dL (0.2-1.2); Calc. Creatinine Clearance 0 mL/min (70-130); Calcium 9.7 mg/dL (7.8-10.44); Carbon Dioxide 24 mmol/L (22-29); Chloride 102 mmol/L (98-107); Estimated GFR-MDRD 57; Globulin 3.6 g/dL (2.4-3.5); Glucose 80 mg/dL (70-105); Potassium 4.3 mmol/L (3.5-5.1); Protein, Total 7.8 g/dL (6.0-8.3); Sodium 138 mmol/L (136-145)
== END 2019-03-02 06:37 | disposition home or self-care (01) ==
LOC: LABBT 06:36
PROVIDERS: ATTEND Internal Medicine Cardiovascular Disease
DX: Z01.812 Encounter for preprocedural laboratory examination (principal)
CPT/HCPCS: 80053; 80076; 85025

== ENCOUNTER → 2019-03-06 | Day surgery (SDC) | payer OTHER ==
[2019-03-02 11:21] VITALS: BMI 27.8
[~2019-03-06] MED LIST changes: +Fentanyl 100 MCG/2 ML VIAL ONE; +Heparin 10,000 UNITS/1 ML VIAL ONE; +Iopamidol 370 76% 100 ML VIAL ONE; +Lidocaine 1% (PF) 30 ML VIAL ONE; +Midazolam HCl 2 mg/2 ml Vial ONE; -Sodium Chloride 0.9% 15 ML NEB ONE
--- NOTE | 2019-03-06 08:59 | OP ---
DATE OF PROCEDURE: 03/06/2019 PREPROCEDURE DIAGNOSIS: Claudication. POSTPROCEDURE DIAGNOSIS: Severe peripheral vascular disease. PROCEDURES PERFORMED: 1. Aortogram. 2. Bilateral aortofemoral runoff. 3. Successful PLAN MANAGER only to the right and left ostial common iliac region. COMPLICATIONS: None. ESTIMATED BLOOD LOSS: Less than 20 mL. TOTAL CONTRAST: 70 mL of contrast. DESCRIPTION OF PROCEDURE: The patient was draped and prepped in sterile fashion. Access was obtained in the left femoral artery under ultrasound guidance. There was some difficulty. A Contra catheter was placed successfully. There appeared to be a filling defect noted on the left side, which was not well visualized. He did have bilateral stents noted into the aorta. Access was obtained in the right femoral artery since I was not able to proceed with a contralateral access. Access was obtained successfully under ultrasound guidance. 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 Right lower extremity-there is a stent placed in the common iliac artery into the aorta. There is a filling defect present with a 30 mm gradient. There is also a 50% lesion in the external iliac artery with no significant gradient present. The right common femoral artery has no significant disease. The right SFA has distal 80% stenosis present with a patent popliteal artery. Left lower extremity-there is no significant gradient within the left common iliac stent that extends into the aorta. No significant gradient. The external iliac and common femoral artery have less than 50% stenosis. The SFA has sequential 70% stenosis present. INTERVENTIONAL PROCEDURE: Heparin was used for anticoagulation. A 5 x 40 mm compliant balloon catheter was placed into the previously noted stent. This was also placed on the left side given plaque and stent redistribution after ballooning. Two inflations were performed to 10 atmospheres. There was excellent angiographic result at the end of the study with no significant gradient present. Job ID: [id number]
== END ==
LOC: CCL 06:00
PROVIDERS: ATTEND Internal Medicine Cardiovascular Disease
PROC: 047D3ZZ Dilation of Left Common Iliac Artery, Percutaneous Approach (ICD-10-PCS; principal; 2019-03-06)
PROC: 047C3ZZ Dilation of Right Common Iliac Artery, Percutaneous Approach (ICD-10-PCS; principal; 2019-03-06)
DX: I70.213 Atherosclerosis of native arteries of extremities with intermittent claudication, bilateral legs (principal); I71.9 Aortic aneurysm of unspecified site, without rupture; I25.10 Atherosclerotic heart disease of native coronary artery without angina pectoris; I10 Essential (primary) hypertension; E78.5 Hyperlipidemia, unspecified; J44.9 Chronic obstructive pulmonary disease, unspecified; E03.9 Hypothyroidism, unspecified; Z87.891 Personal history of nicotine dependence; Z79.1 Long term (current) use of non-steroidal anti-inflammatories (NSAID); Z79.82 Long term (current) use of aspirin; Z79.899 Other long term (current) drug therapy; Z95.1 Presence of aortocoronary bypass graft; Z95.820 Peripheral vascular angioplasty status with implants and grafts
CPT/HCPCS: 36005; 37220; 37222; 76942; 85347; 99152; C1725; C1769; J1644; J2001; J2250; J3010; Q9967

== ENCOUNTER 2019-06-27 09:07 | Outpatient (CLI) | payer OTHER ==
--- NOTE | 2019-06-27 09:33 | ULT ---
Sonogram abdomen complete HISTORY: Upper abdomen pain. FINDINGS: Gallbladder has a normal appearance without stones. Common duct is 0.4 cm. Liver unremarkab le without focal mass or intrahepatic biliary dilatation. No free fluid. There is thinning of the cortex of each kidney. No hydronephrosis. The spleen and visualized portions of abdominal aorta, IVC, and pancreas have a normal appearance. IMPRESSION: No evidence of gallstones or biliary obstruction. Diffuse, symmetric bilateral renal cortical thinning/atrophy. No evidence of urinary tract obstructio n.
== END 2019-06-27 09:08 | disposition home or self-care (01) ==
LOC: SCSULT 09:07
PROVIDERS: ATTEND Family Medicine
DX: R10.10 Upper abdominal pain, unspecified (principal)
CPT/HCPCS: 93975

== ENCOUNTER 2021-01-08 14:37 | Outpatient (CLI) | payer OTHER ==
[2021-01-08 15:43] LABS: #Basophils 0.1 10x3/uL (0.0-0.2); #Eosinphils 0.4 10x3/uL (0.0-0.5); #Monocytes 0.7 10x3/uL (0.0-1.1); #Neutrophils 5.7 10x3/uL (1.5-8.4); %Basophils 1.2 % (0.0-2.0); %Eosinophils 4.2 % (0.0-6.0); %Lymphocytes 19.2 % (18.0-47.0); %Monocytes 7.8 % (0.0-10.0); %Neutrophils 66.7 % (40.0-75.0); Hemoglobin 12.8 g/dL (13.5-17.5); Mean Corpuscular HGB CONC 33.3 g/dL (32.0-36.0); Mean Corpuscular Hemoglobin 30.8 pg (27.0-33.0); Mean Corpuscular Volume 92.3 fl (81.2-95.1); Mean Platelet Volume 9.8 fl (7.4-10.4); Platelet Count 211 10x3/uL (150-450); RBC Distribution Width 13.1 % (11.5-14.5); Red Blood Cell (RBC) Count 4.16 10x6/uL (4.32-5.72); White Blood Cell (WBC) Count 8.6 10x3/uL (3.5-10.5)
[2021-01-08 16:05] LABS: ALT (SGPT) 30 U/L (8-55); AST (SGOT) 29 U/L (5-34); Albumin 4.2 g/dL (3.4-4.8); Alkaline Phosphatase 79 U/L (40-110); Anion Gap 16 mmol/L (10-20); BUN (Urea Nitrogen) 22 mg/dL (8.4-25.7); Bilirubin, Total 0.6 mg/dL (0.2-1.2); Calc. Creatinine Clearance 0 mL/min (70-130); Calcium 10.1 mg/dL (7.8-10.44); Carbon Dioxide 24 mmol/L (23-31); Chloride 105 mmol/L (98-107); Globulin 2.9 g/dL (2.4-3.5); Glucose 84 mg/dL (80-115); Potassium 4.5 mmol/L (3.5-5.1); Protein, Total 7.1 g/dL (5.8-8.1); Sodium 140 mmol/L (136-145)
[2021-01-09 12:08] LABS: SARS-CoV-2 PCR by NAA Not Detected (NotDetected)
== END 2021-01-08 14:38 | disposition home or self-care (01) ==
LOC: LABBT 14:37
PROVIDERS: ATTEND Internal Medicine Cardiovascular Disease
DX: Z01.812 Encounter for preprocedural laboratory examination (principal); Z20.822 Contact with and (suspected) exposure to COVID-19
CPT/HCPCS: 80053; 85025; U0003; U0005

== ENCOUNTER 2021-01-13 06:15 | Day surgery (SDC) | payer OTHER ==
[2021-01-10 12:06] VITALS: BMI 29.5
[2021-01-13] MEDS ORDERED: Lidocaine 1% (PF) 30 ML VIAL ONE (06:31)
[2021-01-13] MEDS ORDERED: Heparin 0 ML ONE (06:31)
[2021-01-13] MEDS ORDERED: Verapamil 5 MG/2 ML VIAL ONE (06:32)
[2021-01-13] MEDS ORDERED: Nitroglycerin 100MG/250ML BOT 0 ML ONE (06:32)
[2021-01-13] MEDS ORDERED: Heparin 10,000 UNITS/ 10 ML VIAL ONE (06:32)
== END 2021-01-13 06:35 | disposition home or self-care (01) ==
LOC: SDC 06:15
PROVIDERS: ATTEND Internal Medicine Cardiovascular Disease
DX: I70.213 Atherosclerosis of native arteries of extremities with intermittent claudication, bilateral legs (principal); I25.10 Atherosclerotic heart disease of native coronary artery without angina pectoris; I10 Essential (primary) hypertension; E78.5 Hyperlipidemia, unspecified; J44.9 Chronic obstructive pulmonary disease, unspecified; E03.9 Hypothyroidism, unspecified; G47.33 Obstructive sleep apnea (adult) (pediatric); Z53.9 Procedure and treatment not carried out, unspecified reason; Z87.891 Personal history of nicotine dependence; Z79.01 Long term (current) use of anticoagulants; Z79.82 Long term (current) use of aspirin; Z79.899 Other long term (current) drug therapy; Z95.1 Presence of aortocoronary bypass graft
CPT/HCPCS: J1644; J2001

== ENCOUNTER 2021-01-15 15:41 | Outpatient (CLI) | payer OTHER ==
[2021-01-16 11:58] LABS: SARS-CoV-2 PCR by NAA Not Detected (NotDetected)
== END 2021-01-15 15:42 | disposition home or self-care (01) ==
LOC: LABBT 15:41
PROVIDERS: ATTEND Internal Medicine Cardiovascular Disease
DX: Z01.812 Encounter for preprocedural laboratory examination (principal); Z20.822 Contact with and (suspected) exposure to COVID-19
CPT/HCPCS: U0003; U0005

== ENCOUNTER 2021-01-17 05:47 | Day surgery (SDC) | payer OTHER ==
[2021-01-16 11:04] VITALS: BMI 29.5
[2021-01-17] MEDS ORDERED: Heparin 10,000 UNITS/ 10 ML VIAL ONE ×2 (06:36→08:54)
[2021-01-17] MEDS ORDERED: Lidocaine 1% (PF) 30 ML VIAL ONE (06:36)
[2021-01-17] MEDS ORDERED: Midazolam HCl 2 mg/2 ml Vial ONE ×2 (06:36→08:58)
[2021-01-17] MEDS ORDERED: Fentanyl 100 MCG/2 ML VIAL ONE (06:36)
[2021-01-17] MEDS ORDERED: Protamine Sulfate 50 MG/5 ML VIAL ONE (09:44)
[2021-01-17] MEDS ORDERED: Clopidogrel Bisulfate 75 MG TAB ONE (10:20)
[2021-01-17] MEDS ORDERED: Iopamidol 370 76% 100 ML VIAL ONE (15:06)
[2021-01-17] MEDS ORDERED: Iopamidol 370 76% 50 ML VIAL FS ONE (15:06)
== END 2021-01-17 14:23 | disposition home or self-care (01) ==
LOC: SDC 05:47
PROVIDERS: ATTEND Internal Medicine Cardiovascular Disease
PROC: 047J3DZ Dilation of Left External Iliac Artery with Intraluminal Device, Percutaneous Approach (ICD-10-PCS; principal; 2021-01-17)
DX: I70.213 Atherosclerosis of native arteries of extremities with intermittent claudication, bilateral legs (principal); I71.9 Aortic aneurysm of unspecified site, without rupture; I70.0 Atherosclerosis of aorta; I25.10 Atherosclerotic heart disease of native coronary artery without angina pectoris; I10 Essential (primary) hypertension; E78.5 Hyperlipidemia, unspecified; J44.9 Chronic obstructive pulmonary disease, unspecified; E03.9 Hypothyroidism, unspecified; G47.33 Obstructive sleep apnea (adult) (pediatric); Z87.891 Personal history of nicotine dependence; Z79.01 Long term (current) use of anticoagulants; Z79.82 Long term (current) use of aspirin; Z79.899 Other long term (current) drug therapy; Z95.1 Presence of aortocoronary bypass graft; Z95.820 Peripheral vascular angioplasty status with implants and grafts
CPT/HCPCS: 36245; 36246; 37220; 37221; 37222; 37252; 76942; 85347; 99152; 99153; C1753; J1644; J2001; J2250; J2720; J3010; Q9967

== ENCOUNTER 2022-01-22 12:02 | Outpatient (CLI) | payer OTHER ==
[2022-01-22 13:36] LABS: #Basophils 0.1 10x3/uL (0.0-0.2); #Eosinphils 0.5 10x3/uL (0.0-0.5); #Monocytes 0.8 10x3/uL (0.0-1.1); #Neutrophils 5.4 10x3/uL (1.5-8.4); %Eosinophils 5.7 % (0.0-6.0); %Lymphocytes 17.5 % (18.0-47.0); %Monocytes 9.3 % (0.0-10.0); %Neutrophils 65.9 % (40.0-75.0); Hemoglobin 13.6 g/dL (13.5-17.5); Mean Corpuscular HGB CONC 34.4 g/dL (32.0-36.0); Mean Corpuscular Hemoglobin 31.1 pg (27.0-33.0); Mean Corpuscular Volume 90.2 fl (81.2-95.1); Platelet Count 209 10x3/uL (150-450); RBC Distribution Width 12.1 % (11.5-14.5); Red Blood Cell (RBC) Count 4.38 10x6/uL (4.32-5.72); White Blood Cell (WBC) Count 8.2 10x3/uL (3.5-10.5)
[2022-01-22 13:57] LABS: ALT (SGPT) 39 U/L (8-55); AST (SGOT) 34 U/L (5-34); Albumin 4.4 g/dL (3.4-4.8); Alkaline Phosphatase 83 U/L (40-110); Anion Gap 12 mmol/L (10-20); BUN (Urea Nitrogen) 29 mg/dL (8.4-25.7); Bilirubin, Total 0.6 mg/dL (0.2-1.2); Calc. Creatinine Clearance 0 mL/min (70-130); Calcium 9.3 mg/dL (7.8-10.44); Carbon Dioxide 24 mmol/L (23-31); Chloride 106 mmol/L (98-107); Estimated GFR 62; Globulin 2.7 g/dL (2.4-3.5); Glucose 94 mg/dL (80-115); Potassium 4.2 mmol/L (3.5-5.1); Protein, Total 7.1 g/dL (5.8-8.1); Sodium 138 mmol/L (136-145)
== END 2022-01-22 12:03 | disposition home or self-care (01) ==
LOC: LABBT 12:02
PROVIDERS: ATTEND Internal Medicine Cardiovascular Disease
DX: Z01.812 Encounter for preprocedural laboratory examination (principal); Z20.822 Contact with and (suspected) exposure to COVID-19
CPT/HCPCS: 80053; 85025; 87811

== ENCOUNTER 2022-01-27 06:00 | Day surgery (SDC) | payer OTHER ==
[2022-01-26 13:01] VITALS: BMI 29.7
[2022-01-27] MEDS ORDERED: Lidocaine 1% (PF) 30 ML VIAL ONE (06:37)
== END 2022-01-27 08:03 | disposition home or self-care (01) ==
LOC: SDC 06:00
PROVIDERS: ATTEND Internal Medicine Cardiovascular Disease
DX: I73.9 Peripheral vascular disease, unspecified (principal); Z53.09 Procedure and treatment not carried out because of other contraindication; Z79.01 Long term (current) use of anticoagulants; Z79.82 Long term (current) use of aspirin; Z79.890 Hormone replacement therapy; Z79.899 Other long term (current) drug therapy
CPT/HCPCS: J2001

== ENCOUNTER 2022-04-30 14:40 | Outpatient (CLI) | payer OTHER | END 2022-04-30 14:41 | disposition home or self-care (01) | LOC: BICRAD 14:40 | PROVIDERS: ATTEND Nurse Practitioner Family | DX: M54.2 Cervicalgia (principal); Z98.890 Other specified postprocedural states; M47.812 Spondylosis without myelopathy or radiculopathy, cervical region | CPT/HCPCS: 72050 ==

== ENCOUNTER 2022-07-24 13:53 | Outpatient (CLI) | payer OTHER ==
[2022-07-24 14:55] LABS: #Basophils 0.1 10x3/uL (0.0-0.2); #Eosinphils 0.3 10x3/uL (0.0-0.5); #Monocytes 0.8 10x3/uL (0.0-1.1); %Basophils 1.1 % (0.0-2.0); %Eosinophils 4.2 % (0.0-6.0); %Lymphocytes 22.5 % (18.0-47.0); %Monocytes 9.4 % (0.0-10.0); %Neutrophils 61.3 % (40.0-75.0); Hemoglobin 13.6 g/dL (13.5-17.5); Mean Corpuscular HGB CONC 33.3 g/dL (32.0-36.0); Mean Corpuscular Hemoglobin 30.6 pg (27.0-33.0); Mean Corpuscular Volume 92.1 fl (81.2-95.1); Mean Platelet Volume 9.4 fl (7.4-10.4); Platelet Count 234 10x3/uL (150-450); RBC Distribution Width 12.9 % (11.5-14.5); Red Blood Cell (RBC) Count 4.44 10x6/uL (4.32-5.72); White Blood Cell (WBC) Count 8.2 10x3/uL (3.5-10.5)
[2022-07-24 15:13] LABS: ALT (SGPT) 37 U/L (8-55); AST (SGOT) 34 U/L (5-34); Albumin 4.5 g/dL (3.4-4.8); Alkaline Phosphatase 84 U/L (40-110); Anion Gap 15 mmol/L (10-20); BUN (Urea Nitrogen) 25 mg/dL (8.4-25.7); Bilirubin, Total 0.6 mg/dL (0.2-1.2); Calc. Creatinine Clearance 0 mL/min (70-130); Calcium 9.4 mg/dL (7.8-10.44); Carbon Dioxide 24 mmol/L (23-31); Chloride 103 mmol/L (98-107); Estimated GFR 56; Globulin 2.9 g/dL (2.4-3.5); Glucose 82 mg/dL (80-115); Potassium 4.5 mmol/L (3.5-5.1); Protein, Total 7.4 g/dL (5.8-8.1); Sodium 137 mmol/L (136-145)
== END 2022-07-24 13:54 | disposition home or self-care (01) ==
LOC: LABBT 13:53
PROVIDERS: ATTEND Internal Medicine Cardiovascular Disease
DX: Z01.812 Encounter for preprocedural laboratory examination (principal)
CPT/HCPCS: 80053; 85025

== ENCOUNTER 2022-07-29 06:01 | Day surgery (SDC) | payer OTHER ==
[2022-07-27 12:27] VITALS: BMI 30.8
[2022-07-29] MEDS ORDERED: Heparin 10,000 UNITS/ 10 ML VIAL ONE ×2 (06:36→08:12)
[2022-07-29] MEDS ORDERED: Lidocaine 1% (PF) 30 ML VIAL ONE (06:36)
[2022-07-29] MEDS ORDERED: Midazolam HCl 2 mg/2 ml Vial ONE (06:57)
[2022-07-29] MEDS ORDERED: FENTANYL 50 MCG/ML 1 ML VIAL ONE (06:58)
[2022-07-29] MEDS ORDERED: Protamine Sulfate 50 MG/5 ML VIAL ONE (08:39)
== END 2022-07-29 15:43 | disposition home or self-care (01) ==
LOC: SDC 06:01
PROVIDERS: ATTEND Internal Medicine Cardiovascular Disease
PROC: 04HJ3DZ Insertion of Intraluminal Device into Left External Iliac Artery, Percutaneous Approach (ICD-10-PCS; principal; 2022-07-29)
PROC: 04HH3DZ Insertion of Intraluminal Device into Right External Iliac Artery, Percutaneous Approach (ICD-10-PCS; principal; 2022-07-29)
DX: T82.856A Stenosis of peripheral vascular stent, initial encounter (principal); I73.9 Peripheral vascular disease, unspecified; I71.9 Aortic aneurysm of unspecified site, without rupture; I72.3 Aneurysm of iliac artery; I25.10 Atherosclerotic heart disease of native coronary artery without angina pectoris; I10 Essential (primary) hypertension; E78.5 Hyperlipidemia, unspecified; J44.9 Chronic obstructive pulmonary disease, unspecified; G47.33 Obstructive sleep apnea (adult) (pediatric); Z95.1 Presence of aortocoronary bypass graft; Z87.891 Personal history of nicotine dependence; Z79.82 Long term (current) use of aspirin; Z79.890 Hormone replacement therapy; Z79.01 Long term (current) use of anticoagulants; Z79.899 Other long term (current) drug therapy; Y83.2 Surgical operation with anastomosis, bypass or graft as the cause of abnormal reaction of the patient, or of later complication, without mention of misadventure at the time of the procedure
CPT/HCPCS: 36215; 36246; 37252; 37253; 75630; 85347; 99152; 99153; C1725; C1753; C1769; C1876; C1887; C1894; J1644; J2001; J2250; J2720; J3010

== ENCOUNTER 2023-04-05 07:54 | Outpatient (CLI) | payer OTHER | END 2023-04-05 07:55 | disposition home or self-care (01) | LOC: ULT 07:54 | PROVIDERS: ATTEND Internal Medicine Nephrology | DX: I12.9 Hypertensive chronic kidney disease with stage 1 through stage 4 chronic kidney disease, or unspecified chronic kidney disease (principal); N18.30 Chronic kidney disease, stage 3 unspecified; R94.4 Abnormal results of kidney function studies | CPT/HCPCS: 76770; 93975 ==

== ENCOUNTER 2024-02-11 10:09 | Outpatient (CLI) | payer OTHER ==
[2024-02-11 11:06] LABS: #Basophils 0.04 10x3/uL (0.0-0.2); %Basophils 0.5 % (0.0-1.0); %Eosinophils 6.4 % (0.0-10.0); %Lymphocytes 23.4 % (21.0-51.0); %Monocytes 9.5 % (0.0-10.0); %Neutrophils 59.8 % (42.0-75.0); Hematocrit 37.4 % (42.0-52.0); Hemoglobin 12.3 g/dL (14.0-18.0); Mean Corpuscular HGB CONC 32.9 g/dL (32.0-36.0); Mean Corpuscular Hemoglobin 31.1 pg (27.0-31.0); Mean Corpuscular Volume 94.4 fL (78.0-98.0); Mean Platelet Volume 9.1 fL (7.4-10.4); Platelet Count 192 10x3/uL (130-400); RBC Distribution Width 12.8 % (11.5-14.5); Red Blood Cell (RBC) Count 3.96 mill/uL (4.70-6.10)
[2024-02-11 11:23] LABS: Anion Gap 14 mmol/L (10-20); BUN (Urea Nitrogen) 33 mg/dL (8.4-25.7); Calc. Creatinine Clearance 0 mL/min (70-130); Calcium 9.4 mg/dL (7.8-10.44); Carbon Dioxide 24 mmol/L (23-31); Chloride 103 mmol/L (98-107); Estimated GFR 52; Glucose 103 mg/dL (80-115); Potassium 4.5 mmol/L (3.5-5.1); Sodium 136 mmol/L (136-145)
== END 2024-02-11 10:10 | disposition home or self-care (01) ==
LOC: LABBT 10:09
PROVIDERS: ATTEND Thoracic Surgery (Cardiothoracic Vascular Surgery)
DX: Z01.812 Encounter for preprocedural laboratory examination (principal); I73.9 Peripheral vascular disease, unspecified
CPT/HCPCS: 80048; 85025

== ENCOUNTER 2024-02-14 05:48 | Day surgery (SDC) | payer OTHER ==
[2024-02-11 10:31] VITALS: BMI 28.7
[2024-02-14] MEDS ORDERED: Heparin 10,000 UNITS/ 10 ML VIAL ONE (06:22)
[2024-02-14] MEDS ORDERED: Nitroglycerin 50 MG/250 ML BOT 0 ML ONE (06:23)
[2024-02-14] MEDS ORDERED: Iopamidol 370 76% 100 ML VIAL ONE (10:20)
== END 2024-02-14 11:05 | disposition home or self-care (01) ==
LOC: SDC 05:48
PROVIDERS: ATTEND Thoracic Surgery (Cardiothoracic Vascular Surgery)
PROC: 02713ZZ Dilation of Coronary Artery, Two Arteries, Percutaneous Approach (ICD-10-PCS; principal; 2024-02-14)
DX: I73.9 Peripheral vascular disease, unspecified (principal); I10 Essential (primary) hypertension; I25.10 Atherosclerotic heart disease of native coronary artery without angina pectoris; E78.5 Hyperlipidemia, unspecified; G47.30 Sleep apnea, unspecified; Z95.1 Presence of aortocoronary bypass graft; Z96.653 Presence of artificial knee joint, bilateral; Z79.899 Other long term (current) drug therapy
CPT/HCPCS: 36247; 37226; 75710; 75774; 85347; C1760; C1769; C1876; C1887; C1894; C2623; J1644; Q9967

== ENCOUNTER 2024-11-24 10:37 | Outpatient (CLI) | payer OTHER, MEDICAID ==
[2024-11-24 11:53] LABS: #Basophils 0.03 10x3/uL (0.0-0.2); #Eosinophils 0.27 10x3/uL (0.0-0.7); #Monocytes 0.51 10x3/uL (0.11-0.59); #Neutrophils 7.23 10x3/uL (1.40-6.50); %Basophils 0.3 % (0.0-1.0); %Eosinophils 2.9 % (0.0-10.0); %Lymphocytes 13.7 % (21.0-51.0); %Monocytes 5.5 % (0.0-10.0); %Neutrophils 77.3 % (42.0-75.0); Hematocrit 41.0 % (42.0-52.0); Hemoglobin 13.3 g/dL (14.0-18.0); Mean Corpuscular Hemoglobin 29.9 pg (27.0-31.0); Mean Corpuscular Volume 92.1 fL (78.0-98.0); Platelet Count 192 10x3/uL (130-400); Red Blood Cell (RBC) Count 4.45 mill/uL (4.70-6.10); White Blood Cell (WBC) Count 9.35 10x3/uL (4.8-10.8)
[2024-11-24 12:15] LABS: Anion Gap 14 mmol/L (10-20); BUN (Urea Nitrogen) 22 mg/dL (8.4-25.7); Calc. Creatinine Clearance 0 mL/min (70-130); Calcium 9.7 mg/dL (7.8-10.44); Carbon Dioxide 26 mmol/L (23-31); Chloride 102 mmol/L (98-107); Glucose 134 mg/dL (80-115); Potassium 4.0 mmol/L (3.5-5.1); Sodium 138 mmol/L (136-145)
== END 2024-11-24 10:38 | disposition home or self-care (01) ==
LOC: LABBT 10:37
PROVIDERS: ATTEND Thoracic Surgery (Cardiothoracic Vascular Surgery)
DX: Z01.818 Encounter for other preprocedural examination (principal); I73.9 Peripheral vascular disease, unspecified
CPT/HCPCS: 80048; 85025; 93005; 93010

== ENCOUNTER 2024-11-27 06:36 | Day surgery (SDC) | payer OTHER, MEDICAID ==
[2024-11-24 10:59] VITALS: BMI 28.7
[2024-11-27] MEDS ORDERED: Heparin 5,000 UNITS/ML VIAL ONE (06:39)
[2024-11-27] MEDS ORDERED: PROPOFOL 20 ML ONE ×2 (07:20→08:04)
[2024-11-27] MEDS ORDERED: Lidocaine 1% PF 5 ML VIAL ONE (07:40)
[2024-11-27] MEDS ORDERED: Ondansetron PF 4 MG/2 ML Vial ONE (07:40)
[2024-11-27] MEDS ORDERED: PHENYLEPHRINE-NS 100 MCG/ML 10 ML SYRINGE ONE (07:40)
[2024-11-27] MEDS ORDERED: Glycopyrrolate 0.2 MG/ML 5 ML SYRINGE ONE (07:54)
[2024-11-27] MEDS ORDERED: Heparin 10,000 UNITS/ 10 ML VIAL ONE (08:26)
== END 2024-11-27 11:03 | disposition home or self-care (01) ==
LOC: SDC 06:36
PROVIDERS: ATTEND Thoracic Surgery (Cardiothoracic Vascular Surgery)
PROC: 047K3ZZ Dilation of Right Femoral Artery, Percutaneous Approach (ICD-10-PCS; principal; 2024-11-27)
DX: I73.9 Peripheral vascular disease, unspecified (principal); I10 Essential (primary) hypertension; E78.5 Hyperlipidemia, unspecified; E03.9 Hypothyroidism, unspecified; F32.A Depression, unspecified; F17.200 Nicotine dependence, unspecified, uncomplicated; Z90.89 Acquired absence of other organs; Z95.1 Presence of aortocoronary bypass graft; Z98.41 Cataract extraction status, right eye; Z98.42 Cataract extraction status, left eye; Z96.653 Presence of artificial knee joint, bilateral; Z98.890 Other specified postprocedural states; Z79.82 Long term (current) use of aspirin; Z79.01 Long term (current) use of anticoagulants; Z79.890 Hormone replacement therapy; Z79.899 Other long term (current) drug therapy
CPT/HCPCS: 37226; 75710; C1725; C1758; C1760; C1769 ×6; C1876; C1887; J0169; J0665; J1644 ×2; J2405; J2704; J3010